=== PATIENT | female | born 1995 | race Caucasian/White ===

== ENCOUNTER → 2022-10-30 | Outpatient (CLI) | payer OTHER, SELFPAY ==
[2022-11-04 07:06] LABS: Chlamydia By Nucleic Acid AMP Negative (Negative); Gonococcus By Nucleic Acid AMP Negative (Negative)
== END | disposition home or self-care (01) ==
PROVIDERS: Referring Provider Registered Nurse; Visit Provider Registered Nurse
DX: Z34.90 Encounter for supervision of normal pregnancy, unspecified, unspecified trimester (principal); Z3A.00 Weeks of gestation of pregnancy not specified
CPT/HCPCS: 87086; 87088; 87491; 87591

== ENCOUNTER → 2022-11-05 | Outpatient (CLI) | payer OTHER, SELFPAY ==
[2022-11-05 17:57] LABS: NATERA MAILED SPECIMEN
== END | disposition home or self-care (01) ==
LOC: LAB 16:52
PROVIDERS: PCP Registered Nurse; Referring Provider Registered Nurse; Visit Provider Registered Nurse
DX: Z34.81 Encounter for supervision of other normal pregnancy, first trimester (principal); Z3A.00 Weeks of gestation of pregnancy not specified

== ENCOUNTER → 2022-11-27 | Outpatient (CLI) | payer OTHER, SELFPAY ==
[2022-11-27 14:59] LABS: Absolute Lymphocyte Count 1.95 X10^3/uL (0.83-4.51); Absolute Neutrophil Count 5.5 X10^3/uL (2.0-7.7); Basophil# 0.04 X10^3/uL; Basophil% 0.5 % (0-1); Eosinophil# 0.06 X10^3/uL; Eosinophils% 0.7 % (0-5); Hematocrit 40.2 % (37-47); Hemoglobin 13.5 g/dL (12.0-15.0); Lymphocyte # 1.95 X10^3/ul (0.83-4.51); Lymphocyte % 23.6 % (19-41); Mean Corp Hgb Conc 33.6 g/dL (32-36); Mean Corpuscular Hgb 29.3 pg (27.0-32.0); Mean Corpuscular Volume 87.2 fL (81-99); Mean Platelet Vol. 9.3 fl (6.2-12.0); Monocyte# 0.71 X10^3/uL; Monocyte% 8.6 % (0-10); NRBC Flagged by Analyzer 0 % (0-5); Neutrophil # 5.45 X10^3/uL (2.7-7.7); Neutrophil % 66.1 % (47-70); Platelet Count 265 K/mm3 (150-450); RBC Distribution Width CV 12.8 % (11.6-14.6); RBC Distribution Width SD 40.1 fl (35.1-43.9); Red Blood Count 4.61 M/mm3 (4.2-5.4); White Blood Count 8.3 K/mm3 (4.4-11.0)
[2022-11-27 17:31] LABS: HIV - WCH Non-Reactive (Nonreactive); Hepatitis B Surface Antigen Non-Reactive (Nonreactive); Hepatitis C Antibody Non-Reactive (Nonreactive); Rubella IgG Reactive (Nonreactive); Syphilis Antibodies Non-reactive
== END | disposition home or self-care (01) ==
LOC: LAB 14:25
PROVIDERS: PCP Registered Nurse; Referring Provider Registered Nurse; Visit Provider Registered Nurse
DX: Z34.90 Encounter for supervision of normal pregnancy, unspecified, unspecified trimester (principal)
CPT/HCPCS: 36415; 85025; 86703; 86762; 86780; 86803; 86850; 86900; 86901; 87340

== ENCOUNTER → 2023-01-23 | Outpatient (CLI) | payer OTHER, SELFPAY ==
--- NOTE | 2023-01-23 12:22 | US_ITS ---
INDICATION: anatomy scan EXAMINATION: Ultrasound US OB Complete W/ Detail single or first gestation TECHNIQUE: Transabdominal pelvic ultrasound was performed. COMPARISON: No relevant prior comparison study available LMP: Unknown. Beta-hCG: Unknown. Provided EGA: None. FINDINGS: INTRAUTERINE GESTATION(s): Single. HEART MOTION is 143 bpm. BIOMETRIC MEASUREMENTS: HEAD CIRCUMFERENCE: 19.7 cm which corresponds to 21 weeks and 6 days. BIPARIETAL DIAMETER: 5.4 cm which corresponds to 22 weeks and 3 days. ABDOMINAL CIRCUMFERENCE: 17.2 cm which corresponds to 22 weeks and 1 day. FEMORAL LENGTH: 3.8 cm which corresponds to 22 weeks. ESTIMATED DUE DATE (DEBORA): 05/30/2023 ESTIMATED WEIGHT: 484 g +/- 73 g, 75% tile. PRESENTATION: Transverse presentation with the head on the maternal left side. AMNIOTIC FLUID INDEX (BRENDA): Within normal limits but not measured, the largest pocket of amniotic fluid measures 6.2 cm. BIOPHYSICAL PROFILE (BPP): Not assessed. PLACENTA: Posterior. There is no placenta previa or abruption. CERVIX: The cervix measures 4.5 cm in length. MATERNAL OVARIES: Not visualized. FREE FLUID: None. ANATOMY: LATERAL VENTRICLES: Visualized. CHOROID PLEXUS: Visualized. MIDLINE FALX: Visualized. CEREBELLUM: Unremarkable CISTERNA MAGNA: The cisterna magna measures 4 mm. UPPER LIP: Not well seen. FOUR CHAMBER HEART VIEW: Unremarkable. STOMACH: Visualized. KIDNEYS: Visualized, no hydronephrosis. URINARY BLADDER: Visualized. UMBILICAL CORD INSERTION into the abdomen: Unremarkable. UMBILICAL CORD vessel number: Normal three vessel cord. SPINE: Grossly unremarkable. No posterior spinal defect observed. UPPER AND LOWER EXTREMITIES: Present. GENDER: Female. US/OB Anatomy w/ Transvaginal IMPRESSION: Single live intrauterine with an estimated gestational age of 21 weeks and 6 days. The DEBORA is 05/30/2023. Electronically Signed: Marcio Nick MD at 11:17 EST ,
== END | disposition home or self-care (01) ==
PROVIDERS: PCP Registered Nurse; Referring Provider Registered Nurse; Visit Provider Registered Nurse
DX: Z34.90 Encounter for supervision of normal pregnancy, unspecified, unspecified trimester (principal)
CPT/HCPCS: 76805; 76817

== ENCOUNTER 2023-02-23 19:33 | Emergency (ER) | payer OTHER, MEDICAID, SELFPAY ==
[2023-02-23 19:34] VITALS: BP 107/63; PULSE 146; RESP 15; TEMP 36.2; O2SAT 97
--- OUTSIDE RECORDS SUMMARY | 2023-02-23 20:07 | XMS RPT_ITS | CCD ---
Author Name Unknown Address [address] [place] [address] Organization [facility] Care Team Providers Care Logging Equipment Mechanic Name Role Phone MIX, MAZIN Sanchez Attending Unavailable MIX, MAZIN Sanchez Primary Care Unavailable MIX, MAZIN N Admitting Unavailable MIX, MAZIN N Admitting Unavailable MIX, MAZIN N Attending Unavailable MIX, MAZIN N Primary Care Unavailable PHYSICIAN, NONE Primary Care Physician Unavailab elan MATHIS MD, DAGMAR Attending Unavailable PHYSICIAN, NONE Primary Care Unavailable DEL CASTRO, DAGMAR Admitting Unavailable RAJ BALLARD, REDDY Chapa Attending Unavailable PHYSICIAN, NONE Primary Care Unavailable DEL CASTRO, DAGMAR Attending Unavailable BRISSA DEFENSE TRAVEL ADMINISTRATOR-COMPUTER ENGINEERING TECHNOLOGIST, ZACKARY Cordero Primary Care Un available DEL CASTRO, DAGMAR Attending Unavailable PHYSICIAN, NONE Primary Care Unavailable DEL CASTRO, DAGMAR Attending Unavailable PHYSICIAN, NONE Primary Care Unavailable FRANCHESKA DEFENSE TRAVEL ADMINISTRATOR-COMPUTER ENGINEERING TECHNOLOGIST, MELBA Attending Unavail able PHYSICIAN, NONE Primary Care Unavailable ANNEMARIE DEFENSE TRAVEL ADMINISTRATOR-CNM, MAINOR Ponce Attending Neelimavai lable PHYSICIAN, NONE Primary Care Unavailable Allergies Allergy Classification Reported Allergen(s) Allergy Type Date of Onset Reaction(s) Facility (4 sources) Sulfonamides (Antibiotic); Translations: [sulfa drugs] Drug allergy sister has allergy, unsure if she actually does or not [facility] Work Phone: Medications Current Medications Medication Drug Class(es) Dates Sig (Normalized) Sig (Original) docusate sodium 100 mg oral tablet (2 sources) Start: 09-18-2021 take 1 dose by mouth twice daily as needed for constipation Dulcolax Stool Softener Dose : 100 mg =, Oral, BID, PRN as needed for constipation, 0 Refill(s) Start Date: 09/18/21 Status: Ordered Fish Oils (3 sources) Start: 07-18-2021 take 1 dose by mouth once daily [place]-3 Fish Oil Dose : 1,000 mg =, Oral, qDay, 0 Refill(s) Start Date: 07/18/21 Status: Ordered Problems Active Problems Problem Classification Problem Date Documented Da te Episodic/Chronic Genitourinary symptoms and ill-defined conditions (2 sources) Urge incontinence; Translations: [Urge incontinence] Onset: 09-18-2021 Chronic Mood disorders (2 sources) Mood disorders; Translations: [Depression, unspecified] Onset: 09-18-2021 Other complications of (3 sources) Uterine size-date discrepancy, first trimester; Translations: [Uterine size-date discrepancy, first trimester] Onset: 12-29-2020 Episodic Residual codes; unclassified (1 source) 11 weeks gestation of ; Translations: [11 weeks gestation of ] Onset: 12-29-2020 Episodic Past or Other Problems Problem Classification Problem Date Documented Date Episodic/Chronic Contraceptive and procreative management (2 sources) Encounter for contraceptive management, unspecified; Translations: [Encounter for contraceptive management, unspecified] Onset: 09-18-2021 Episodic Other and delivery including normal (6 sources) ; Translations: [Encounter for routine follow-up] Onset: 07-01-2021 07-01-2021 Episodic Results Test Name Value Interpretation Reference Range Facil ity Vital Signs Date Time Vital Sign Value Performing Clinician Manny hernandez 10-24-2021 00:26-0400 Body height 175.3 cm REDDY ANTHONY DO [facility] 10-24-2021 00:26-0400 Body temperature 98.06 [degF] REDDY ANTHONY DO [facility] 10-24-2021 00:26-0400 Body weight 95.5 kg REDDY ANTHONY DO [facility] 10-24-2021 00:26-0400 Diastolic blood pressure 87 mm[Hg] REDDY ANTHONY DO [facility] 10-24-2021 00:26-0400 Heart rate 79 /min REDDY ANTHONY DO [facility] 10-24-2021 00:26-0400 Respiratory rate 18 /min REDDY ANTHONY DO [facility] 10-24-2021 00:26-0400 Systolic blood pressure 137 mm[Hg] REDDY ANTHONY DO [facility] 07-01-2021 18:09-0400 Diastolic blood pressure 87 mm[Hg] MAINOR SHARPE DEFENSE TRAVEL ADMINISTRATOR-CNM [facility] 07-01-2021 18:09-0400 Heart rate 102 /min MAINOR SHARPE DEFENSE TRAVEL ADMINISTRATOR-CNM [facility] 07-01-2021 18:09-0400 Mean blood pressure 100 mm[Hg] MAINOR SHARPE DEFENSE TRAVEL ADMINISTRATOR-CNM [facility] 07-01-2021 18:09-0400 Systolic blood pressure 127 mm[Hg] MAINOR SHARPE DEFENSE TRAVEL ADMINISTRATOR-CNM [facility] 07-01-2021 18:02-0400 Body temperature 97.34 [degF] MAINOR SHARPE DEFENSE TRAVEL ADMINISTRATOR-CNM [facility] 07-01-2021 18:02-0400 Diastolic blood pressure 91 mm[Hg] MAINOR SHARPE DEFENSE TRAVEL ADMINISTRATOR-CNM [facility] 07-01-2021 18:02-0400 Heart rate 105 /min MAINOR SHARPE DEFENSE TRAVEL ADMINISTRATOR-CNM [facility] 07-01-2021 18:02-0400 Mean blood pressure 112 mm[Hg] MAINOR SHARPE DEFENSE TRAVEL ADMINISTRATOR-CNM [facility] 07-01-2021 18:02-0400 Respiratory rate 20 /min MAINOR SHARPE DEFENSE TRAVEL ADMINISTRATOR-CNM [facility] 07-01-2021 18:02-0400 Systolic blood pressure 154 mm[Hg] MAINOR SHARPE DEFENSE TRAVEL ADMINISTRATOR-CNM [facility] 07-01-2021 17:51-0400 Body height 175.3 cm MAINOR SHARPE DEFENSE TRAVEL ADMINISTRATOR-CNM [facility] 07-01-2021 17:51-0400 Body weight 102.3 kg MAINOR SHARPE DEFENSE TRAVEL ADMINISTRATOR-CNM [facility] 07-01-2021 17:51-0400 Body weight 33.29 kg/m2 MAINOR SHARPE DEFENSE TRAVEL ADMINISTRATOR-CNM [facility] Encounters Encounter Date Encounter Type Care Provider Facility Start: 10-30-2021 End: 03-20-2022 ambulatory DAGMAR MATHIS MD Facility:A Start: 10-26-2021 End: 10-27-2021 ambulatory MELBA LAY Facility:B Start: 10-26-2021 End: 10-26-2021 Patient encounter procedure MELBA PRITCHARD APRN-COMPUTER ENGINEERING TECHNOLOGIST [facility] Start: 10-24-2021 End: 10-24-2021 Emergency department patient visit REDDY ANTHONY DO Facility:B Start: 10-24-2021 End: 10-24-2021 Emergency department patient visit REDDY ANTHONY DO [facility] Start: 09-18-2021 End: 09-23-2021 ambulatory DAGMAR MATHIS MD Facility:B Start: 07-28-2021 End: 07-30-2021 Evaluation and management of inpatient DAGMAR MATHIS MD Facility:B Start: 07-18-2021 End: 07-19-2021 ambulatory DAGMAR MATHIS MD Facility:B Start: 07-18-2021 End: 07-18-2021 Patient encounter procedure DAGMAR MATHIS MD [facility] Start: 07-01-2021 End: 07-01-2021 ambulatory MAINOR SHARPE DEFENSE TRAVEL ADMINISTRATOR-CNM Facility:B Start: 07-01-2021 End: 07-01-2021 SAME DAY STAY MAINOR SHARPE DEFENSE TRAVEL ADMINISTRATOR-CNM [facility] Start: 03-07-2021 End: 03-07-2021 ambulatory [facility] Start: 12-29-2020 End: 12-29-2020 [facility] Procedures Date Procedure Procedure Detail Performing Clinician Start: 02-24-2015 Jaw region structure (body structure) DAGMAR MATHIS MD Immunizations Immunization Date Immunization Notes Care Provider Fa cility 07-30-2021 tetanus toxoid, redu harris diphtheria toxoid, and acellular pertussis vaccine, adsorbed REDDY ANTHONY DO [facility] Payers Date Payer Category Payer Unknown [id number] 1997 Unknown [id number] [id number] 1997 Unknown [id number] 2.16.84 [id number] 1997 Unknown [id number] 2.16.8 [id number] 1997 Unknown [id number] 2.16.8 [id number] 1997 Unknown [id number] 2.16.8 [id number] 1997 Unknown [id number] 2.16.8 [id number] 1997 Unknown [id number] 2.16.8 [id number] 1997 Unknown [id number] 2.16.8 [id number] 1997 Unknown [id number] 2.16.8 [id number] Medicaid [id number] Unknown [id number] Social History Date Type Detail Facility Tobacco smoking status [facility] Sex Assigned At Female [facility] Start: 07-18-2021 Tobacco smoking status Never s moked tobacco (finding) [facility] Functional Status Date Assessment Result Facility 10-24-2021 Functional Status Ambulating in thomas, Ambulating in room, Awake, Bathroom privileges [facility] 07-01-2021 Functional Status [facility] Mental Status Date Assessment Result Facility 10-24-2021 Mental Status Oriented x [facility] Discharge instructions 10-24-2021 Note Date & Type Note Facility 10-24-2021 Hospital Discharg e instructions Patient Education 10/24/2021 01:00:42 Loperamide tablets or capsules Loperamide tablets or capsules What is this medicine? LOPERAMIDE (mariaa PER a mide) is used to treat diarrhea. How should I use this medicine? Take this medicine by mouth with a glass of water. Follow the directions on the prescription label. Take your doses at regular intervals. Do not take your medicine more often than directed. Talk to your eligibility counselor regarding the use of this medicine in children. Special care may be needed. What side effects may I notice from receiving this medicine? Side effects that you should report to your doctor or health director of home care hospice as soon as possible: allergic reactions like skin rash, itching or hives, swelling of the face, lips, or tongue bloated, swollen feeling in your abdomen blurred vision loss of appetite signs and symptoms of a dangerous change in heartbeat or heart rhythm like chest pain; dizziness; fast or irregular heartbeat palpitations; feeling faint or lightheaded, falls; breathing problems stomach pain Side effects that usually do not require medical attention (report to your doctor or health director of home care hospice if they continue or are bothersome): constipation drowsiness or dizziness dry mouth nausea, vomiting What may interact with this medicine? Do not take this medicine with any of the following medications: alosetron This medicine may also interact with the following medications: cimetidine clarithromycin erythromycin gemfibrozil itraconazole ketoconazole quinidine quinine ranitidine ritonavir saquinavir What if I miss a dose? This does not apply. This medicine is not for regular use. Only take this medicine while you continue to have loose bowel movements. Do not take more medicine than recommended by the packaging label or by your healthcare professional. Where should I keep my medicine? Keep out of the reach of children. Store at room temperature between 15 and 25 degrees C (59 and 77 degrees F). Keep container tightly closed. Throw away any unused medicine after the expiration date. What should I tell my health care provider before I take this medicine? They need to know if you have any of these conditions: a black or bloody stool bacterial food poisoning colitis or mucus in your stool currently taking an antibiotic medication for an infection fever liver disease severe abdominal pain, swelling or bulging an unusual or allergic reaction to loperamide, other medicines, foods, dyes, or preservatives or trying to get breast-feeding What should I watch for while using this medicine? Do not take this medicine for more than 2 days without asking your doctor or health director of home care hospice. Do not use doses higher than those prescribed by your doctor or listed on the label. Check with your doctor or health director of home care hospice right away if you develop a fever, severe abdominal pain, swelling or bulging, or if you have have bloody/black diarrhea or stools. You may get drowsy or dizzy. Do not drive, use machinery, or do anything that needs mental alertness until you know how this medicine affects you. Do not stand or sit up quickly, especially if you are an older patient. This reduces the risk of dizzy or fainting spells. Alcohol can increase possible drowsiness and dizziness. Avoid alcoholic drinks. Your mouth may get dry. Chewing sugarless gum or sucking hard candy, and drinking plenty of water may help. Contact your doctor if the problem does not go away or is severe. Drinking plenty of water can also help prevent dehydration that can occur with diarrhea. Elderly patients may have a more variable response to the effects of this medicine, and are more susceptible to the effects of dehydration. NOTE:This sheet is a summary. It may not cover all possible information. If you have questions about this medicine, talk to your doctor, pharmacist, or health care provider. Copyright 2019 [employer] 10/24/2021 01:00:34 Diarrhea, Unknown Cause Diarrhea with Uncertain Cause (Adult) Diarrhea is when stools are loose and watery. This can be caused by: Viral infections Bacterial infections Food poisoning Parasites Irritable bowel syndrome (IBS) Inflammatory bowel diseases such as ulcerative colitis, Crohn's disease, and celiac disease Food intolerance, such as to lactose, the sugar found in milk and milk products Reaction to medicines like antibiotics, laxatives, cancer drugs, and antacids Along with diarrhea, you may also have: Abdominal pain and cramping Nausea and vomiting Loss of bowel control Fever and chills Bloody stools In some cases, antibiotics may help to treat diarrhea. You may have a stool sample test. This is done to see what is causing your diarrhea, and if antibiotics will help treat it. The results of a stool sample test may take up to 2 days. The healthcare provider may not give you antibiotics until he or she has the stool test results. Diarrhea can cause dehydration. This is the loss of too much water and other fluids from the body. When this occurs, body fluid must be replaced. This can be done with oral rehydration solutions. Oral rehydration solutions are available at drugstores and grocery stores without a prescription. Sports drinks are not the best choice if you are very dehydrated. They have too much sugar and not enough electrolytes. Home care Follow all instructions given by your healthcare provider. Rest at home for the next 24 hours, or until you feel better. Avoid caffeine, tobacco, and alcohol. These can make diarrhea, cramping, and pain worse. If taking medicines: Mkip-hdv-todoyex nausea and diarrhea medicines are generally OK unless you experience fever or blood stool. Check with your doctor first in those circumstances. You may use acetaminophen or NSAID medicines like ibuprofen or naproxen to reduce pain and fever. Don t use these if you have chronic liver or kidney disease, or ever had a stomach ulcer or gastrointestinal bleeding. Don't use NSAID medicines if you are already taking one for another condition (like arthritis) or are on daily aspirin therapy (such as for heart disease or after a stroke). Talk with your healthcare provider first. If antibiotics were prescribed, be sure you take them until they are finished. Don t stop taking them even when you feel better. Antibiotics must be taken as a full course. To prevent the spread of illness: Remember that washing with soap and water and using alcohol-based middle school assistant principal is the best way to prevent the spread of infection. Dry your hands with a single use towel (like a paper towel). Clean the toilet after each use. Wash your hands before eating. Wash your hands before and after preparing food. Keep in mind that people with diarrhea or vomiting should not prepare food for others. Wash your hands after using cutting boards, countertops, and knives that have been in contact with raw foods. Wash and then peel fruits and vegetables. Keep uncooked meats away from cooked and zkcbh-lo-vwp foods. Use a food thermometer when cooking. Cook poultry to at least 165 F (74 C). Cook ground meat (beef, veal, pork, allen) to at least 160 F (71 C). Cook fresh beef, veal, allen, and pork to at least 145 F (63 C). Don t eat raw or undercooked eggs (poached or meagan side up), poultry, meat, or unpasteurized milk and juices. Food and drinks The main goal while treating vomiting or diarrhea is to prevent dehydration. This is done by taking small amounts of liquids often. Keep in mind that liquids are more important than food right now. Drink only small amounts of liquids at a time. Don t force yourself to eat, especially if you are having cramping, vomiting, or diarrhea. Don t eat large amounts at a time, even if you are hungry. If you eat, avoid fatty, greasy, spicy, or fried foods. Don t eat dairy foods or drink milk if you have diarrhea. These can make diarrhea worse. During the first 24 hours you can try: Oral rehydration solutions. Sports drinks may be used if you are not too dehydrated and are otherwise healthy. Soft drinks without caffeine Kristin mckenzie Water (plain or flavored) Decaf tea or coffee Clear broth, consomm , or bouillon Gelatin, popsicles, or frozen fruit juice bars The second 24 hours, if you are feeling better, you can add: Hot cereal, plain toast, bread, rolls, or crackers Plain noodles, rice, mashed potatoes, chicken noodle soup, or rice soup Unsweetened canned fruit (no pineapple) Bananas As you recover: Limit fat intake to less than 15 grams per day. Don t eat margarine, butter, oils, mayonnaise, sauces, gravies, fried foods, peanut butter, meat, poultry, or fish. Limit fiber. Don t eat raw or cooked vegetables, fresh fruits except bananas, or bran cereals. Limit caffeine and chocolate. Limit dairy. Don t use spices or seasonings except salt. Go back to your normal diet over time, as you feel better and your symptoms improve. If the symptoms come back, go back to a simple diet or clear liquids. Follow-up care Follow up with your healthcare provider, or as advised. If a stool sample was taken or cultures were done, call the healthcare provider for the results as instructed. Call 911 Call 911 if you have any of these symptoms: Trouble breathing Confusion Extreme drowsiness or trouble walking Loss of consciousness Rapid heart rate Chest pain Stiff neck Seizure When to seek medical advice Call your healthcare provider right away if any of these occur: Abdominal pain that gets worse Constant lower right abdominal pain Continued vomiting and inability to keep liquids down Diarrhea more than 5 times a day Blood in vomit or stool Dark urine or no urine for 8 hours, dry mouth and tongue, tiredness, weakness, or dizziness Drowsiness New rash You don t get better in 2 to 3 days Fever of 100.4 F (38 C) or higher, or as directed by your healthcare provider [id number] [employer]. [address] [place] [address]. All rights reserved. This information is not intended as a substitute for professional medical care. Always follow your healthcare professional's instructions. Follow Up Care 10/24/2021 00:25:44 With:Follow up with primary care provider Address:Unknown When:2-4 days [facility] Clinical Note 10-24-2021 Note Date & Type Note Facility 10-24-2021 Note Discharge Instructions Thank you for allowing [facility] to assist you with your healthcare needs. The following is important discharge information regarding your hospital visit. Diagnosis from Today's Visit Diarrhea What to Do Next Instructions from Your Care Team No qualifying data available. Post Acute Orders No qualifying data available. You Need to Schedule the Following Appointments Follow Up with Follow up with primary care provider When Within 2-4 days Allergies sulfa drug (sister has allergy, unsure if she actually does or not) Medications Please ask your primary doctor or pharmacist before taking any other medication not listed, including over the counter drugs, herbal medications, vitamins and or supplements as they may interact with your home medications. What How Much When Why Instructions Last Dose Unchanged docusate (Dulcolax Stool Softener) 100 Milligram by mouth Two (2) times a day as needed for as needed for constipation Unchanged multivitamin, ( Multivitamins with Vitamin B Complex, Vitamin C, Minerals and L-Methylfolate oral capsule) 1 cap by mouth Every day Unchanged sertraline (Zoloft 50 mg oral tablet) 1 tab(s) by mouth Once a day exam depression Half tab daily for 6 days, then one daily Unchanged sertraline (Zoloft 50 mg oral tablet) 1 tab(s) by mouth Once a day exam Depression Please take this list to your next doctor s visit. Bring all medications you take, including over the counter medications, herbals and other supplements with you to your doctor s visit. Patients and families are reminded to discard old lists and to update any records with all medication providers or retail pharmacies. Education Materials Loperamide tablets or capsules What is this medicine? LOPERAMIDE (mariaa PER a mide) is used to treat diarrhea. How should I use this medicine? Take this medicine by mouth with a glass of water. Follow the directions on the prescription label. Take your doses at regular intervals. Do not take your medicine more often than directed. Talk to your eligibility counselor regarding the use of this medicine in children. Special care may be needed. What side effects may I notice from receiving this medicine? Side effects that you should report to your doctor or health director of home care hospice as soon as possible: allergic reactions like skin rash, itching or hives, swelling of the face, lips, or tongue bloated, swollen feeling in your abdomen blurred vision loss of appetite signs and symptoms of a dangerous change in heartbeat or heart rhythm like chest pain; dizziness; fast or irregular heartbeat palpitations; feeling faint or lightheaded, falls; breathing problems stomach pain Side effects that usually do not require medical attention (report to your doctor or health director of home care hospice if they continue or are bothersome): constipation drowsiness or dizziness dry mouth nausea, vomiting What may interact with this medicine? Do not take this medicine with any of the following medications: alosetron This medicine may also interact with the following medications: cimetidine clarithromycin erythromycin gemfibrozil itraconazole ketoconazole quinidine quinine ranitidine ritonavir saquinavir What if I miss a dose? This does not apply. This medicine is not for regular use. Only take this medicine while you continue to have loose bowel movements. Do not take more medicine than recommended by the packaging label or by your healthcare professional. Where should I keep my medicine? Keep out of the reach of children. Store at room temperature between 15 and 25 degrees C (59 and 77 degrees F). Keep container tightly closed. Throw away any unused medicine after the expiration date. What should I tell my health care provider before I take this medicine? They need to know if you have any of these conditions: a black or bloody stool bacterial food poisoning colitis or mucus in your stool currently taking an antibiotic medication for an infection fever liver disease severe abdominal pain, swelling or bulging an unusual or allergic reaction to loperamide, other medicines, foods, dyes, or preservatives or trying to get breast-feeding What should I watch for while using this medicine? Do not take this medicine for more than 2 days without asking your doctor or health director of home care hospice. Do not use doses higher than those prescribed by your doctor or listed on the label. Check with your doctor or health director of home care hospice right away if you develop a fever, severe abdominal pain, swelling or bulging, or if you have have bloody/black diarrhea or stools. You may get drowsy or dizzy. Do not drive, use machinery, or do anything that needs mental alertness until you know how this medicine affects you. Do not stand or sit up quickly, especially if you are an older patient. This reduces the risk of dizzy or fainting spells. Alcohol can increase possible drowsiness and dizziness. Avoid alcoholic drinks. Your mouth may get dry. Chewing sugarless gum or sucking hard candy, and drinking plenty of water may help. Contact your doctor if the problem does not go away or is severe. Drinking plenty of water can also help prevent dehydration that can occur with diarrhea. Elderly patients may have a more variable response to the effects of this medicine, and are more susceptible to the effects of dehydration. NOTE:This sheet is a summary. It may not cover all possible information. If you have questions about this medicine, talk to your doctor, pharmacist, or health care provider. Copyright 2019 [employer] Diarrhea with Uncertain Cause (Adult) Diarrhea is when stools are loose and watery. This can be caused by: Viral infections Bacterial infections Food poisoning Parasites Irritable bowel syndrome (IBS) Inflammatory bowel diseases such as ulcerative colitis, Crohn's disease, and celiac disease Food intolerance, such as to lactose, the sugar found in milk and milk products Reaction to medicines like antibiotics, laxatives, cancer drugs, and antacids Along with diarrhea, you may also have: Abdominal pain and cramping Nausea and vomiting Loss of bowel control Fever and chills Bloody stools In some cases, antibiotics may help to treat diarrhea. You may have a stool sample test. This is done to see what is causing your diarrhea, and if antibiotics will help treat it. The results of a stool sample test may take up to 2 days. The healthcare provider may not give you antibiotics until he or she has the stool test results. Diarrhea can cause dehydration. This is the loss of too much water and other fluids from the body. When this occurs, body fluid must be replaced. This can be done with oral rehydration solutions. Oral rehydration solutions are available at drugstores and grocery stores without a prescription. Sports drinks are not the best choice if you are very dehydrated. They have too much sugar and not enough electrolytes. Home care Follow all instructions given by your healthcare provider. Rest at home for the next 24 hours, or until you feel better. Avoid caffeine, tobacco, and alcohol. These can make diarrhea, cramping, and pain worse. If taking medicines: Kkcp-mqc-ggkjjgj nausea and diarrhea medicines are generally OK unless you experience fever or blood stool. Check with your doctor first in those circumstances. You may use acetaminophen or NSAID medicines like ibuprofen or naproxen to reduce pain and fever. Don t use these if you have chronic liver or kidney disease, or ever had a stomach ulcer or gastrointestinal bleeding. Don't use NSAID medicines if you are already taking one for another condition (like arthritis) or are on daily aspirin therapy (such as for heart disease or after a stroke). Talk with your healthcare provider first. If antibiotics were prescribed, be sure you take them until they are finished. Don t stop taking them even when you feel better. Antibiotics must be taken as a full course. To prevent the spread of illness: Remember that washing with soap and water and using alcohol-based middle school assistant principal is the best way to prevent the spread of infection. Dry your hands with a single use towel (like a paper towel). Clean the toilet after each use. Wash your hands before eating. Wash your hands before and after preparing food. Keep in mind that people with diarrhea or vomiting should not prepare food for others. Wash your hands after using cutting boards, countertops, and knives that have been in contact with raw foods. Wash and then peel fruits and vegetables. Keep uncooked meats away from cooked and cjqyy-er-vwf foods. Use a food thermometer when cooking. Cook poultry to at least 165 F (74 C). Cook ground meat (beef, veal, pork, allen) to at least 160 F (71 C). Cook fresh beef, veal, allen, and pork to at least 145 F (63 C). Don t eat raw or undercooked eggs (poached or meagan side up), poultry, meat, or unpasteurized milk and juices. Food and drinks The main goal while treating vomiting or diarrhea is to prevent dehydration. This is done by taking small amounts of liquids often. Keep in mind that liquids are more important than food right now. Drink only small amounts of liquids at a time. Don t force yourself to eat, especially if you are having cramping, vomiting, or diarrhea. Don t eat large amounts at a time, even if you are hungry. If you eat, avoid fatty, greasy, spicy, or fried foods. Don t eat dairy foods or drink milk if you have diarrhea. These can make diarrhea worse. During the first 24 hours you can try: Oral rehydration solutions. Sports drinks may be used if you are not too dehydrated and are otherwise healthy. Soft drinks without caffeine Kristin mckenzie Water (plain or flavored) Decaf tea or coffee Clear broth, consomm , or bouillon Gelatin, popsicles, or frozen fruit juice bars The second 24 hours, if you are feeling better, you can add: Hot cereal, plain toast, bread, rolls, or crackers Plain noodles, rice, mashed potatoes, chicken noodle soup, or rice soup Unsweetened canned fruit (no pineapple) Bananas As you recover: Limit fat intake to less than 15 grams per day. Don t eat margarine, butter, oils, mayonnaise, sauces, gravies, fried foods, peanut butter, meat, poultry, or fish. Limit fiber. Don t eat raw or cooked vegetables, fresh fruits except bananas, or bran cereals. Limit caffeine and chocolate. Limit dairy. Don t use spices or seasonings except salt. Go back to your normal diet over time, as you feel better and your symptoms improve. If the symptoms come back, go back to a simple diet or clear liquids. Follow-up care Follow up with your healthcare provider, or as advised. If a stool sample was taken or cultures were done, call the healthcare provider for the results as instructed. Call 911 Call 911 if you have any of these symptoms: Trouble breathing Confusion Extreme drowsiness or trouble walking Loss of consciousness Rapid heart rate Chest pain Stiff neck Seizure When to seek medical advice Call your healthcare provider right away if any of these occur: Abdominal pain that gets worse Constant lower right abdominal pain Continued vomiting and inability to keep liquids down Diarrhea more than 5 times a day Blood in vomit or stool Dark urine or no urine for 8 hours, dry mouth and tongue, tiredness, weakness, or dizziness Drowsiness New rash You don t get better in 2 to 3 days Fever of 100.4 F (38 C) or higher, or as directed by your healthcare provider 1956-1927 [employer]. [address] [place] [address], [place] [address]. All rights reserved. This information is not intended as a substitute for professional medical care. Always follow your healthcare professional's instructions. Additional Information VACCINATE! IT SAVES LIVES! Members of the community who have not yet received the COVID-19 vaccine and would like to receive it can visit one of [facility] vaccine clinics. There are many vaccine clinic locations within the [facility]. For locations and available times, please visit [email or web address]. It is important to note that some COVID mobile vaccine clinics are held outdoors and may be canceled in rainy or stormy conditions. To learn more about pediatric vaccinations (ages 5-11), we invite you to visit the [facility] webpage. [email or web address] -[email or web address] To learn more about the COVID-19 vaccine, we invite you to visit the [facility] website for a list of frequently asked questions. [email or web address] [facility] Patient Portal Access Instructions: Stay connected with your healthcare team and access your personal medical information anytime with the [facility] Patient Portal. If you would like a full copy of your medical records please contact the [facility] Medical Records Department Friday through Friday between 8a.m. and 4:30p.m. Please follow the directions below to access the portal: 1.Access the email account you provided upon registration to the hospital.2.Look for an invitation email from [facility].3.Open the email and access the invitation link: Accept Invitation to [facility]4.Fill in the required mitchell to create your account. Sign into [email or web address] with your username and password that you created in the above steps to stay up to date. You can then view a summary of results, a summary of your visits, and the ability to download your summaries to your computer or send the information securely to a physician. Remember that your healthcare information is confidential, so carefully consider who you will allow to register on the [facility] Patient Portal for access to your information. You can also access the [facility] Patient Portal on the [employer]. Simply click on Health Records under Health Data and then click on the [employer] logo. HOW TO SAFELY DISPOSE OF PRESCRIPTION MEDICATIONS Please use one of the following methods to safely dispose of your unused medications. 1.Use a drug disposal kit: the drug disposal pouch allows you to safely discard your old and unused drugs. Ask your nurse to give you one when you are discharged.2.Visit a local take-back location: Many local pharmacies and police departments have programs that collect old and unwanted prescription drugs. Call your local pharmacy or go to http://[employer]UGE/2W3Bo4d to find one close to you.3.Make use of household items: Use cat litter or old coffee grounds to dispose medications if other options are not available. Mix your drugs with these household products, seal them in an airtight container and throw it into the garbage. Call [facility]: [phone] to be sure your drugs can be disposed of in this way. Some medicines may require a different approach.4.Never flush your medications down the toilet. IF YOU HAVE BEEN PRESCRIBED AN OPIOIDS FOR PAIN If you have been prescribed an opioid (such as hydrocodone, oxycodone or morphine), it is critical to understand the possible side effects and risks of opioid pain medications. Even when taken as directed, opioids can have several side effects including: Tolerance, meaning you might need to take more of a medication for the same pain relief. Nausea, vomiting and/or constipation. Sleepiness, dizziness, dry mouth, confusion, depression or itching. Physical dependence, meaning you have withdrawal symptoms when a medication is stopped ? this can develop within a few days. KNOW YOUR RESPONSIBILITIES It is important to know exactly how much and how often to take the opioid pain medications you are prescribed. Never take opioids in higher amounts or more often than prescribed. Do not combine opioids with alcohol or other drugs that cause drowsiness, such as benzodiazepines, also known as benzos, including diazepam and alprazolam, muscle relaxants or sleep aids. Never sell or share prescription opioids. This is illegal. Store opioids in a secure place and out of reach of others (including children, family, friends and visitors). The last page(s) of this document has been signed and retained as a CHART COPY Signatures Patient Education Materials Loperamide tablets or capsules Diarrhea, Unknown Cause Medication Leaflets My discharge plan and instructions have been reviewed and explained to me and I,SETH GARCIA understand my current condition and have read and understand these discharge instructions. I have received a written copy of the plan/instructions. If I have questions, I am aware that I should contact my doctor. Patient/Sample Wrapper Signature: _ Date/Time: Relationship to Patient: Witness Name/Signature: Date/Time: [facility] Discharge instructions 07-01-2021 Note Date & Type Note Facility 07-01-2021 Hospital Discharg e instructions Patient Education 07/01/2021 18:28:08 [facility] Outpatient Instructions ([facility]) [facility] OUT[facility]IENT HOME-GOING INSTRUCTIONS _X_ You are to follow up with your physician in ___ days/weeks. ACTIVITY ___ Bedrest ___Activity as tolerated ___ No work/school for ___ days. ___Other PRESCRIPTION GIVEN ___Yes NAUSEA/VOMITING ___ Take small, frequent amounts of clear liquids. Avoid fruit juices and milk. ___ Increase fluid intake to a minimum of 8 ounces of fluid every hour while awake. ___ Soft diet. Rice, crackers, bananas, Jell-O, cooked carrots, applesauce. ___ [place] diet. Avoid caffeine, chocolate, alcohol, spiced/greasy foods. URINARY TRACT INFECTION ___ Drink 8-12 glasses of water every day. ___ Urinate frequently; do not limit fluids to reduce frequency of urination. ___ Call your physician if burning and frequency with urination returns after taking all your medication. ___ Call your physician if you have a temperature of 100.4 degrees Fahrenheit or higher. ___ Wipe from front to back. SIGNS OF PRE-ECLAMPSIA ___ Severe heartburn. ___ Persistent headache not relieved by Tylenol. ___ Increased in swelling of face, hands and feet. ___ Blurred vision, double vision, or spots in the eyes. ___ Persistent vomiting. ___ *Convulsions or seizures. LABOR _X__ Restrict activity. __X_ Drink 8-12 glasses of water every day. __X_ Urinate frequently _X__ Pelvic rest. No sexual intercourse/ Call your physician if you experience: _X__ Increase in vaginal discharge, leaking fluid, or vaginal bleeding. _XX__ More than 4, 5, or 6 contractions in one hour. __X_ Burning and frequency with urination. DECREASED MOVEMENT __X_ Lie down on your left side, drink some fluids and relax. Count the movements. You need to have 10 movements in 2 hours. _X__ If you do not feel the 10 movements, call your physician. OTHER ___ After an exam you may experience some spotting or discharge. As long as it is not bright red and heavy like a period or continues to leak as if your water broke, it is to be expected. ___ LABOR Call your physician if you experience: __X_ Painful uterine contractions every 3-5 minutes for1 hours. __X_A gush or continuous trickle of watery discharge. COME TO THE HOSPITAL AND CALL PHYSICIAN IF: _X__ Your abdomen feels continually firm. __X_ *Bleeding is bright red and enough to saturate a pad in one hour or less. *Call 911 or go to the nearest Emergency Room for assistance. Form D: 02/01 Follow Up Care 07/01/2021 17:38:15 With:Follow up with primary care provider Address: When: Unknown Comments:Follow up with provider Mazin leroy this week [facility] Evaluation + Plan note Note Date & Type Note Facility Evaluation + Plan note No data available for this section [facility] Evaluation + Plan note Note Date & Type Note Facility Evaluation + Plan note Future Appointments Appointment Date:07/25/2021 09:45:00 AM Scheduled Provider:DAGMAR MATHIS MD Location:[facility] Appointment Type:[facility] OV OB Routine Follow Up [facility] Evaluation + Plan note Note Date & Type Note Facility Evaluation + Plan note Future Appointments Appointment Date:10/30/2021 01:00:00 PM [place] [id number] Location:[facility] Appointment Type:PT Outpatient Evaluation [facility] Evaluation + Plan note Note Date & Type Note Facility Evaluation + Plan note Future Appointments Appointment Date:10/30/2021 01:00:00 PM Scheduled Provider:[place] [id number] Location:[facility] Appointment Type:PT Outpatient Evaluation Appointment Date:12/10/2021 01:00:00 PM Scheduled Provider:ZACKARY BRUMFIELD Location:[facility] Appointment Type:PC DIRECTOR OF INSTITUTIONAL GIVING Diagnostic Tests PendingRapid Plasma Reagin Test 10/26/21 [facility] Hospital Discharge instructions Note Date & Type Note Facility Hospital Discharge instructions No data available for this section [facility] Progress note Note Date & Type Note Facility Progress note No data available for this section [facility] Summary note Note Date & Type Note Facility Summary note PORTER Brumfield: PERFORM Event Display: Patient Summary Documents Authored Date: [id number] [facility] Summary Purpose Family History No Family History Records FoundNo Family History Records Found Advance Directives No Advanced Directives Records FoundNo Advanced Directives Records Found Additional Source Comments INFORMATION SOURCE (unrecogn ized section and content) DATE CREATED AUTHOR AUTHOR'S ORGANIZ ATION 05/10/2022 [facility] ([place]) Care Team (unrecognized sect ion and content) Care Team Personnel Name: PHYSICIAN, NONE Position: Physician Member Role: Primary Care Physician Name: REDDY ANTHONY DO Position: ED Physician Member Role: ED Physician Address: Address: [address] Care Team Related Persons Name: ALEX DAVE Address: Home [address] [place], [place] [id number] Address: Temporary [address] [place], [place] [id number] Name: CECELIA DAVE Care Team Personnel Name: PHYSICIAN, NONE Position: Physician Member Role: Primary Care Physician Care Team Related Persons Name: ALEX DAVE Address: Home [address] [place], [place] [id number] Address: Temporary [address] [place], [place] [id number] Name: CECELIA DAVE FOR RECORDS PERTAINING TO PATIENTS WHO ARE OR HAVE BEEN ENROLLED IN A CHEMICAL DEPENDENCY/SUBSTANCEABUSE PROGRAM, SOME INFORMATION MAY BE OMITTED. This clinical summary was aggregated from multiple sources. Caution should be exercised in using it in the provision of clinical care. This summary normalizes information from multiple sources, and as a consequence, information in this document may materially change the coding, format and clinical context of patient data. In addition, data may be omitted in some cases. CLINICAL DECISIONS SHOULD BE BASED ON THE PRIMARY CLINICAL RECORDS. [facility]. provides no warranty or guarantee of the accuracy or completeness of information in this document.
[2023-02-23 21:51] LABS: Absolute Lymphocyte Count 0.56 X10^3/uL (0.83-4.51); Absolute Neutrophil Count 6.1 X10^3/uL (2.0-7.7); Basophil# 0.06 X10^3/uL; Basophil% 0.8 % (0-1); Eosinophil# 0.02 X10^3/uL; Eosinophils% 0.3 % (0-5); Hematocrit 42.2 % (37-47); Hemoglobin 14.2 g/dL (12.0-15.0); Lymphocyte # 0.56 X10^3/ul (0.83-4.51); Lymphocyte % 7.6 % (19-41); Mean Corp Hgb Conc 33.6 g/dL (32-36); Mean Corpuscular Hgb 29.7 pg (27.0-32.0); Mean Corpuscular Volume 88.3 fL (81-99); Mean Platelet Vol. 9.2 fl (6.2-12.0); Monocyte# 0.42 X10^3/uL; Monocyte% 5.7 % (0-10); NRBC Flagged by Analyzer 0 % (0-5); Neutrophil # 6.12 X10^3/uL (2.7-7.7); POSITIVE DIFFERENTIAL YES; Platelet Count 255 K/mm3 (150-450); RBC Distribution Width CV 12.6 % (11.6-14.6); RBC Distribution Width SD 40.1 fl (35.1-43.9); Red Blood Count 4.78 M/mm3 (4.2-5.4); White Blood Count 7.4 K/mm3 (4.4-11.0)
[2023-02-23] MEDS: Ondansetron 4 MG/2 ML Vial IV (21:52)
[2023-02-23] MEDS: 0.9% Normal Saline (1000mL) 1,000 ML 999 ML IV ×2 (21:52→23:14)
[2023-02-23 21:53] VITALS: BP 118/64; PULSE 105; RESP 16; O2SAT 95
[2023-02-23 21:55] LABS: Differential Indicated SCAN CRITERIA MET
[2023-02-23 22:06] LABS: Anion Gap 6 (5-15); BUN 9 mg/dL (7-18); BUN/Creat Ratio 15.7 RATIO (10-20); Calcium,Total 8.2 mg/dL (8.5-10.1); Chloride 111 mmol/L (98-107); Creatinine, Serum 0.58 mg/dL (0.55-1.02); EST Glomerular Filtration Rate 135 mL/min (>60); Est Glom Filt Rate - Afr Amer 164 mL/min (>60); Estimated Creatinine Clearance 154.96 ml/min; Glucose 134 mg/dL (74-106); Potassium 3.1 mmol/L (3.5-5.1); Sodium Level 140 mmol/L (136-145)
[2023-02-23 22:53] LABS: Differential Comment SCANNED
[2023-02-23 23:09] LABS: Mucous, Urine 0 SEEN /hpf (<or=2+); Red Blood Cells-Urine 0 SEEN /hpf (0-5)
[2023-02-23 23:11] LABS: Color, Urine Yellow (Yellow); Glucose, Dipstick 50 mg/dl (Normal); Ketone-Dipstick 50 mg/dl (Negative); Leukocyte Esterase-Dipstick Negative /ul (Negative); Nitrite-Dipstick Negative (Negative); Occult Blood-Urine 10 /ul (Negative); Protein-Dipstick 30 mg/dl (Negative); Urine Bilirubin Dipstick Negative (Negative); Urine Clarity Clear (Clear); Urine Urobilinogen Normal (Normal)
[2023-02-23] MEDS: Potassium Chloride Oral Tablet 20 MEQ 40 MEQ PO (23:17)
[2023-02-23 23:57] LABS: Bacteria RARE /hpf (None Seen); Squamous Epithelial Cells - UA 0-5 SEEN /hpf (5-10); White Blood Cells 0-5 SEEN /hpf (0-5)
--- NOTE | 2023-02-24 00:05 | EX.ED.DYSGE1 ---
HPI History of Present Illness Chief Complaint: Numb/Ting Informant: patient Narrative Narrative: 27-year-old female presenting to the emergency room chief complaint of vomiting diarrhea. Patient states that her toddler has been sick with same. She is had continued vomiting diarrhea throughout the day. She notes paresthesias of the fingers right face and feet. She notes that she is 26 weeks . She spoke with on-call obstetrics who sent her to the hospital. She attempted small-volume oral hydration without success. She denies any fever. Recent COVID diagnosis before [employer]. PFSH PFS Home Medications vits no.126-ferrous fum 28 mg iron-folic acid 800 mcg tablet (Classic ) 1 tab PO DAILY 10/30/22 [History Last Taken Unknown] aspirin 81 mg tablet,delayed release (Adult Low Dose Aspirin) 81 mg PO DAILY 02/23/23 [History Last Taken Unknown] Allergy/AdvReac Type Severity Reaction Status Date / Time Sulfa (Sulfonamide Allergy Mild Rash Verified 02/23/23 21:59 Antibiotics) Family History Grandmother Breast cancer Aunt Breast cancer Uncle Cancer lung cancer Sister Ulcerative colitis Father Hypertension Grandfather , of heart attack Hypertension Heart disease Grandfather Heart disease Hypertension Aunt Breast cancer Grandmother Breast cancer Sister Ulcerative colitis Pituitary tumor Mother Hypoactive thyroid Surgical History History of mandibular surgery [place] teeth removed Social History adopted: No household members: spouse and children housing: house number of children: 1 current occupational status: employed 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 [employer] current occupational exposures/hazards: No pets and animals: No leisure activities: reading history of recent travel: Yes out of state: Yes out of country: Yes sexually active: Yes Smoking Status: Never smoker second hand exposure: No alcohol intake: never substance use type: does not use well-balanced diet: daily or most days caffeine: Yes eating out: 1-3 times/week what type of physical activity do you participate in: none and walking yang/shinto: Hoahaoism seatbelt use: always do you feel safe at home: Yes additional social history: - Georgi PAZ ED Constitutional Constitutional ED: Denies chills, fever(s) or weight loss Eyes Eyes: Denies change in vision or diplopia ENT ENT ED: Denies ear pain, rhinorrhea or sore throat Cardiovascular Cardiovascular: Denies chest pain, orthopnea, palpitations or racing heartbeat Respiratory/Chest Respiratory/Chest: Denies cough, dyspnea or orthopnea Gastrointestinal Gastrointestinal: Reports diarrhea, nausea and vomiting; Denies abdominal pain Genitourinary Genitourinary ED: Denies dysuria, hematuria or urinary frequency Musculoskeletal Musculoskeletal: Denies arthralgias or myalgias Integumentary Denies abscess or rash Neurologic Neurologic: Denies headache(s) or weakness Psychiatric Psychiatric: Denies anxiety, depression, suicidal ideation or suicidal thoughts Endocrine Endocrinology: Denies polydipsia, polyphagia or polyuria Allergic/Immunologic Allergic/Immunologic ED: Denies mouth swelling, tongue swelling or urticaria EXAM Physical Exam Const Vital Signs: 02/23/23 19:34 02/23/23 21:53 Temperature 97.2 F L Temperature Source Temporal Pulse Rate 146 H 105 H Respiratory Rate 15 16 Blood Pressure 107/63 118/64 Blood Pressure Mean 77 82 Pulse Ox 97 95 Oxygen Delivery Method Room Air Room Air Positive well nourished and well developed General Appearance ED: well developed HEENT Reports normocephalic, head/scalp atraumatic and moist mucous membranes Eyes PERRL and EOMs intact bilaterally Neck no lymphadenopathy, supple and no JVD Resp normal respiratory effort and clear to auscultation bilaterally Cardio regular rate, regular rhythm and no murmurs Rate: tachycardic GI normal to inspection, nondistended, normoactive bowel sounds and non-tender Palpation: soft Back/Spine no CVA tenderness and normal ROM Extremity normal to inspection General Extremety ED: Negative for edema General Extremity: Negative for edema Neuro oriented x3 and CN's II-XII intact bilaterally Sensorium / Orientation: alert Motor Exam: strength 5/5 throughout Psych mental status grossly normal Mood & Affect: Negative for depressed or tearful Skin no rashes or lesions noted and no wounds MDM MDM MDM Narrative Medical decision making narrative: Patient received IV fluids in the form of 2 L normal saline as well as Zofran. Potassium returns at 3.1 she received 40 mill equivalents p.o. Glucose 134. Urinalysis no overt infection. Was some ketones. White count 7.4 hemoglobin 14.2. heart rate of 160. Patient feels better after treatment. She will be discharged home with continued supportive care instructions for Deborasaira. I think the potassium is acute loss with shift and not so much whole body depletion. This should bounce back without significant work History & Record Review Discussion w/independent historian: Patient and Significant other Lab Data Attestation: I reviewed the patient's lab results. Labs: Laboratory Results - last 24 hr 02/23/23 02/23/23 21:45 22:58 WBC 7.4 RBC 4.78 Hgb 14.2 Hct 42.2 MCV 88.3 MCH 29.7 MCHC 33.6 RDW Std Deviation 40.1 RDW Coeff of Sarah 12.6 Plt Count 255 MPV 9.2 Immature Gran % (Auto) 2.600 H Neut % (Auto) 83.0 H Lymph % (Auto) 7.6 L [place] % (Auto) 5.7 Eos % (Auto) 0.3 Baso % (Auto) 0.8 Absolute Neuts (auto) 6.1 Absolute Lymphs (auto) 0.56 L Nucleated RBC % 0 Differential Comment SCANNED Sodium 140 Potassium 3.1 L Chloride 111 H Carbon Dioxide 23.0 Anion Gap 6 BUN 9 Creatinine 0.58 Estim Creat Clear Calc 154.96 Est GFR (MDRD) Af Amer 164 Est GFR (MDRD) Non-Af 135 BUN/Creatinine Ratio 15.7 Glucose 134 H Calcium 8.2 L Urine Color Yellow Urine Clarity Clear Urine pH 6.0 Ur Specific [place] 1.030 Urine Protein 30 H Urine Glucose (UA) 50 H Urine Ketones 50 H Urine Occult Blood 10 H Urine Nitrite Negative Urine Bilirubin Negative Urine Urobilinogen Normal Ur Leukocyte Esterase Negative Urine RBC 0 SEEN Urine WBC 0-5 SEEN Ur Squamous Epith Cells 0-5 SEEN Urine Bacteria RARE Urine Mucus 0 SEEN Discharge Plan Triage Chief Complaint: Numb/Ting Other Complaint: Nausea/Vomiting/Diarrhea ED Provider: Victorino Bassett Dx/Rx/DC Orders Prescriptions: No Action Classic 28 mg iron- 800 mcg tablet 1 tab PO DAILY aspirin [Adult Low Dose Aspirin] 81 mg tablet,delayed release (DR/EC) 81 mg PO DAILY Primary Care Provider: Cathy Khalil NP Referrals: Simran,Cathy ARRANGER ASSEMBLER, ARRANGER ASSEMBLER-C [Primary Care Provider] -
[2023-02-24 01:14] VITALS: BP 98/54; PULSE 109; RESP 16; O2SAT 96
== END 2023-02-24 01:18 | disposition home or self-care (01) ==
PROVIDERS: Emergency Provider Emergency Medicine; PCP Registered Nurse; Visit Provider Emergency Medicine
DX: O99.891 Other specified diseases and conditions complicating pregnancy (principal); R11.2 Nausea with vomiting, unspecified; R19.7 Diarrhea, unspecified; Z3A.26 26 weeks gestation of pregnancy; Z79.82 Long term (current) use of aspirin; Z86.16 Personal history of COVID-19
CPT/HCPCS: 80048; 81001; 85025; 96361; 96374; 99285; J7030; A4216; J2405

== ENCOUNTER → 2023-03-04 | Outpatient (CLI) | payer OTHER, SELFPAY ==
[2023-03-04 12:12] LABS: Absolute Neutrophil Count 6.8 X10^3/uL (2.0-7.7); Basophil# 0.05 X10^3/uL; Basophil% 0.5 % (0-1); Eosinophil# 0.05 X10^3/uL; Eosinophils% 0.5 % (0-5); Hematocrit 37.6 % (37-47); Hemoglobin 12.6 g/dL (12.0-15.0); Lymphocyte % 20.6 % (19-41); Mean Corp Hgb Conc 33.5 g/dL (32-36); Mean Corpuscular Hgb 29.5 pg (27.0-32.0); Mean Corpuscular Volume 88.1 fL (81-99); Mean Platelet Vol. 9.3 fl (6.2-12.0); Monocyte# 0.61 X10^3/uL; Monocyte% 6.3 % (0-10); NRBC Flagged by Analyzer 0 % (0-5); Neutrophil % 70.2 % (47-70); Platelet Count 287 K/mm3 (150-450); RBC Distribution Width CV 12.5 % (11.6-14.6); Red Blood Count 4.27 M/mm3 (4.2-5.4); White Blood Count 9.7 K/mm3 (4.4-11.0)
[2023-03-04 12:46] LABS: Glucose Challenge Gest 1H 50g 117 mg/dL (70-140)
[2023-03-04 14:14] LABS: HIV - WCH Non-Reactive (Nonreactive); Syphilis Antibodies Non-reactive
== END | disposition home or self-care (01) ==
PROVIDERS: PCP Registered Nurse; Referring Provider Registered Nurse; Visit Provider Registered Nurse
DX: Z34.90 Encounter for supervision of normal pregnancy, unspecified, unspecified trimester (principal)
CPT/HCPCS: 36415; 82950; 85025; 86703; 86780

== ENCOUNTER → 2023-05-07 | Outpatient (CLI) | payer MEDICAID, SELFPAY ==
[2023-05-07 17:18] LABS: Group B Strep DNA By PCR Negative (Negative); Internal Control PASS; Probe Check PASS; Specimen Processing Control PASS
== END | disposition home or self-care (01) ==
PROVIDERS: PCP Registered Nurse; Referring Provider Registered Nurse; Visit Provider Registered Nurse
DX: Z34.90 Encounter for supervision of normal pregnancy, unspecified, unspecified trimester (principal)
CPT/HCPCS: 87081; 87653

== ENCOUNTER 2023-05-26 01:26 | Emergency (ER) | payer OTHER, MEDICAID, SELFPAY ==
[2023-05-26 01:28] VITALS: BP 130/90; PULSE 105; RESP 18; TEMP 36.3; O2SAT 98; BMI 33.4
--- NOTE | 2023-05-26 02:30 | EDS_ITS ---
HPI History of Present Illness Chief Complaint: Edema Informant: patient Narrative Narrative: Patient is a 28-year-old female who is 39 weeks and otherwise with no significant past medical history. She states that roughly a week ago he was told that she has a upper respiratory infection/cold. She states over the last few days she has been developing pain and swelling of the left upper cheek/jaw. She states that there was no trauma and she denies any difficulty breathing or swallowing. She states that the pain has now become a constant throb and secondary to worsening pain presents for evaluation [facility] Home Medications vits no.126-ferrous fum 28 mg iron-folic acid 800 mcg tablet (Classic ) 1 tab PO DAILY 10/30/22 [History Last Taken Unknown] aspirin 81 mg tablet,delayed release (Adult Low Dose Aspirin) 81 mg PO DAILY 02/23/23 [History Last Taken Unknown] ondansetron 4 mg disintegrating tablet 4 mg PO Q6H PRN PRN Nausea #20 tabs 02/24/23 [Rx Last Taken Unknown] clindamycin HCl 300 mg capsule 300 mg PO 4X/DAY 10 days #40 caps 05/26/23 [Rx Last Taken Unknown] Allergy/AdvReac Type Severity Reaction Status Date / Time Sulfa (Sulfonamide Allergy Mild Rash Verified 05/26/23 01:28 Antibiotics) Family History Grandmother Breast cancer Aunt Breast cancer Uncle Cancer lung cancer Sister Ulcerative colitis Father Hypertension Grandfather , of heart attack Hypertension Heart disease Grandfather Heart disease Hypertension Aunt Breast cancer Grandmother Breast cancer Sister Ulcerative colitis Pituitary tumor Mother Hypoactive thyroid Surgical History History of mandibular surgery [place] teeth removed Social History adopted: No household members: spouse and children housing: house number of children: 1 current occupational status: employed 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 [employer] current occupational exposures/hazards: No pets and animals: No leisure activities: reading history of recent travel: Yes out of state: Yes out of country: Yes sexually active: Yes Smoking Status: Never smoker second hand exposure: No alcohol intake: never substance use type: does not use well-balanced diet: daily or most days caffeine: Yes eating out: 1-3 times/week what type of physical activity do you participate in: none and walking yang/muslim: Religious seatbelt use: always do you feel safe at home: Yes additional social history: - Georgi PAZ ROS ED Constitutional Constitutional ED: Denies chills or fever(s) Eyes Eyes: Denies change in vision ENT ENT ED: Reports other Details: Positive jaw pain and facial swelling ; Denies rhinorrhea or sore throat Cardiovascular Cardiovascular: Denies chest pain Respiratory/Chest Respiratory/Chest: Denies cough or dyspnea Gastrointestinal Gastrointestinal: Denies abdominal pain, diarrhea, nausea or vomiting Genitourinary Genitourinary ED: Reports urinary frequency and other Details: Negative vaginal bleeding or discharge ; Denies dysuria Musculoskeletal Musculoskeletal: Denies myalgias or neck pain Integumentary Reports other Details: Positive soft tissues swelling to the left cheek ; Denies rash Neurologic Neurologic: Denies headache(s) Hematologic/Lymphatic Hematologic/Lymphatic: Denies easy bleeding or easy bruising EXAM Physical Exam Const Vital Signs: 05/26/23 01:28 05/26/23 01:27 05/26/23 02:42 Temperature 97.3 F L 97.3 F L Temperature Source Temporal Pulse Rate 105 H 91 Respiratory Rate 18 18 Respiratory Effort Normal Non-Labored Respiratory Pattern Normal Blood Pressure 130/90 H 127/85 H Blood Pressure Mean 103 99 Pulse Ox 98 98 Oxygen Delivery Method Room Air Positive well nourished and well developed General Appearance ED: well developed HEENT HEENT Narrative: Patient has soft tissue swelling to the left cheek over top the zygomatic arch and extends slightly towards the bridge of the nose. There is faint erythema and warmth here without obvious induration or fluctuance. There is erythema of the left upper jaw without obvious abscess formation. No signs of ANUG No oral lesions or airway edema or compromise No signs of secondary infection to the posterior pharynx No brawny edema in the submental space to suggest Kana's angina Eyes PERRL and EOMs intact bilaterally Neck supple Neck Narrative: Positive anterior cervical lymphadenopathy Resp normal respiratory effort and clear to auscultation bilaterally Cardio regular rate and regular rhythm Extremity normal to inspection Neuro oriented x3, CN's II-XII intact bilaterally and no sensory deficits noted Sensorium / Orientation: alert Motor Exam: strength 5/5 throughout Psych mental status grossly normal Skin Skin Narrative: Soft tissue changes of left cheek as documented above MDM MDM MDM Narrative Medical decision making narrative: Patient presented to the ER afebrile and in no acute distress. She had asymmetric soft tissue swelling with faint redness and warmth along the left zygomatic arch towards the bridge of the nose and with this reports underlying dental pain. General diagnosis is for dental abscess versus developing dental infection versus cellulitis. There were no signs of ANUG to the gingiva and there was no brawny edema and therefore my concern for Kana angina is low as well. At this time I feel the soft tissue swelling is secondary to underlying dental infection/developing dental abscess however I do not feel any type of fluctuance internally or externally to suggest incision and drainage. As she is in her third trimester at 39 weeks clindamycin is safe for and appropriate for dental infection. She will be started on this secondary to infection concern. She will be given Percocet in the ER as 1 dose poses little risk to the fetus but advised to only use Tylenol at home. As she does not have signs of systemic infection or airway compromise or edema I do not feel there is need for further workup and she is otherwise safe for discharge History & Record Review Discussion w/independent historian: Patient Discharge Plan Triage Chief Complaint: Edema ED Provider: Lee Hays Dx/Rx/DC Orders Clinical Impression: Dental abscess, Instructions: Dental Abscess Prescriptions: New clindamycin HCl 300 mg capsule 300 mg PO 4X/DAY 10 Days Qty: 40 0RF No Action Classic 28 mg iron- 800 mcg tablet 1 tab PO DAILY aspirin [Adult Low Dose Aspirin] 81 mg tablet,delayed release (DR/EC) 81 mg PO DAILY ondansetron [ondansetron] 4 mg tablet,disintegrating 4 mg PO Q6H PRN PRN (Reason: Nausea) Qty: 20 0RF Primary Care Provider: Cathy Khalil NP Referrals: Cathy Khalil NP, DINKEY ENGINE OPERATOR-C [Primary Care Provider] - Activity Restrictions/Additional Instructions: Here history and exam indicate you are developing a underlying dental abscess/infection. Please take the clindamycin/antibiotic as directed as this should help resolve the infection. Please follow-up with your dentist for repeat evaluation and to discuss need for potential incision and drainage. Return to the ER should you have any further concerns Disposition Disposition: Home, Self Care Discharge Date/Time: 05/26/23 02:43
[2023-05-26] MEDS: Clindamycin HCl 150 MG Capsule 300 MG PO (02:37)
[2023-05-26] MEDS: Oxycodone/Apap 5/325 Tablet PO (02:39)
[2023-05-26 02:42] VITALS: BP 127/85; PULSE 91; RESP 18; TEMP 36.3; O2SAT 98
== END 2023-05-26 02:43 | disposition home or self-care (01) ==
PROVIDERS: Emergency Provider Emergency Medicine; PCP Registered Nurse; Visit Provider Emergency Medicine
DX: O99.613 Diseases of the digestive system complicating pregnancy, third trimester (principal); K04.7 Periapical abscess without sinus; Z3A.39 39 weeks gestation of pregnancy
CPT/HCPCS: 99283

== ENCOUNTER 2023-05-27 03:50 | Inpatient (IN) | payer OTHER, MEDICAID, SELFPAY ==
[2023-05-27] VITALS (44 sets, daily range): BP systolic 110–141; BP diastolic 61–87; PULSE 83–107; RESP 16–18; TEMP 36.3–37.4; O2SAT 93–100; BMI 33.6
[2023-05-27] MEDS: LACTATED RINGERS 500 ML 999 ML IV (04:06)
[2023-05-27] MEDS: Lactated Ringers 1,000 ML 50 ML IV (04:15)
[2023-05-27 04:19] LABS: Absolute Lymphocyte Count 3.23 X10^3/uL (0.83-4.51); Basophil# 0.06 X10^3/uL; Basophil% 0.4 % (0-1); Eosinophil# 0.07 X10^3/uL; Eosinophils% 0.5 % (0-5); Hematocrit 37.2 % (37-47); Hemoglobin 12.5 g/dL (12.0-15.0); Lymphocyte # 3.23 X10^3/ul (0.83-4.51); Lymphocyte % 22.1 % (19-41); Mean Corp Hgb Conc 33.6 g/dL (32-36); Mean Corpuscular Hgb 28.3 pg (27.0-32.0); Mean Corpuscular Volume 84.4 fL (81-99); Mean Platelet Vol. 9.4 fl (6.2-12.0); Monocyte# 1.05 X10^3/uL; Monocyte% 7.2 % (0-10); NRBC Flagged by Analyzer 0 % (0-5); Neutrophil % 68.6 % (47-70); Platelet Count 320 K/mm3 (150-450); RBC Distribution Width CV 13.3 % (11.6-14.6); RBC Distribution Width SD 40.3 fl (35.1-43.9); Red Blood Count 4.41 M/mm3 (4.2-5.4); White Blood Count 14.6 K/mm3 (4.4-11.0)
[2023-05-27] MEDS: Lidocaine 1% (20 ml mdv) 20 ML Vial INFILT (04:35)
[2023-05-27] MEDS: Oxytocin 15 Units/NS 250ml 15 UNITS/250 ML IV.SOLN 83 UNITS IV (04:53)
[2023-05-27] MEDS: Oxytocin 10 UNITS/ML Vial IM (04:54)
[2023-05-27] MEDS: Methylergonovine 0.2 MG/ML Ampul IM (04:57)
--- NOTE | 2023-05-27 05:15 | HP.PCM.OB_ITS ---
HPI - General General Date of Admission: 05/27/23 HPI Narrative SETH DAVE, is a 28 F who presents at 39.2 with worsening contractions since midnight with increasing frequency. denies lof/vb/dec fm. recently being treated for a dental abscess using Augmentin and Tylenol with codeine for pain management. last taken yesterday evening. Maternal Data Information DEBORA Calculator Estimated Delivery Date Method Current WG Current Estimate 06/01/23 LMP (Certain) 39w 2d PFSH PFSH Home Medications vits no.126-ferrous fum 28 mg iron-folic acid 800 mcg tablet (Classic ) 1 tab PO DAILY 10/30/22 [History Last Taken Unknown] aspirin 81 mg tablet,delayed release (Adult Low Dose Aspirin) 81 mg PO DAILY 02/23/23 [History Last Taken Unknown] ondansetron 4 mg disintegrating tablet 4 mg PO Q6H PRN PRN Nausea #20 tabs 02/24/23 [Rx Last Taken Unknown] clindamycin HCl 300 mg capsule 300 mg PO 4X/DAY 10 days #40 caps 05/26/23 [Rx Last Taken Unknown] Allergy/AdvReac Type Severity Reaction Status Date / Time Sulfa (Sulfonamide Allergy Mild Rash Verified 05/26/23 01:28 Antibiotics) Family History Grandmother Breast cancer Aunt Breast cancer Uncle Cancer lung cancer Sister Ulcerative colitis Father Hypertension Grandfather , of heart attack Hypertension Heart disease Grandfather Heart disease Hypertension Aunt Breast cancer Grandmother Breast cancer Sister Ulcerative colitis Pituitary tumor Mother Hypoactive thyroid Surgical History History of mandibular surgery [place] teeth removed Social History adopted: No household members: spouse and children housing: house number of children: 1 current occupational status: employed 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 [employer] current occupational exposures/hazards: No pets and animals: No leisure activities: reading history of recent travel: Yes out of state: Yes out of country: Yes sexually active: Yes Smoking Status: Never smoker second hand exposure: No alcohol intake: never substance use type: does not use well-balanced diet: daily or most days caffeine: Yes eating out: 1-3 times/week what type of physical activity do you participate in: none and walking yang/sikh: Taoist seatbelt use: always do you feel safe at home: Yes additional social history: - Georgi History 2 Elective abortions Hx Para 1 Spontaneous abortions Hx # Term Pregnancies Ectopic pregnancies Hx # Pregnancies 1 Multiple births # of living children 1 Past Pregnancies Del. Date Name GA/Weeks Outcome Route Bth Weight Gen Labor Lgth Anesthesia Del Locatn Provider FOB Unknown [place] 40 live - full term 7#15 [place] Visit Details Expected Delivery Route/Plan Labor Preferences- labor support person: Georgi labor intervention preferences: low intervention, open to massage, breathing carrie hniques, movement pain management options preferred: open to nitrous, epidural, IV medication cut cord/dad catch: she wants to catch : yes PP control planned: [] discussed possible routes of delivery and associated risks: [] special requests: tear naturally. Plans Covid status: [] Flu vaccine: [] Tdap vaccine: Rhogam: NA LARC form signed:declined movement and labor precautions reviewed. Problem list reviewed and updated with the most current plan of care details and appropriate orders placed. Relevant counseling for the gestational age provided. Continue routine care and follow up unless otherwise noted in visit notes/problem list details OB Flowsheet Initial Weight: 197 lb Date -?-?-?-?-?-?-?-?-?-?-?-?- EGA Weight BP Urine Prot -?-?-?-?-?-?-?-?-?-?-?-?- Glucose FHR FuHt Pres Dilation -?-?-?-?-?-?-?-?-?-?-?-?- Effaced St Visit Note 10/30/22 -?-?-?-?-?-?-?-?--?-?-?-?- 9w 3d 197 lb 6 oz (+6 oz) 109/71 -?-?-?-?-?-?-?-?-?-?-?-?- 180 -?-?-?-?-?-?-?-?-?-?-?-?- LC- CRL con with LMP. DEBORA 06/01/2023. accepts nipt. 11/27/22 -?-?-?-?-?-?-?-?-?-?-?-?- 13w 3d 195 lb 6 oz (-1 lb 10 oz) 106/72 Negative -?-?-?-?-?-?-?-?-?-?-?-?- Negative 156 -?-?-?-?-?-?-?-?-?-?-?-?- LC- no vb/crampi ng. did not obtain nob labs with nipt. LC- no vb/cramping. did not obtain nob labs with nipt. its a GIRL!! declines afp. 12/20/22 -?-?-?-?-?-?-?-?-?-?-?-?- 16w 5d 196 lb 8 oz (-8 oz) 98/69 Negative -?-?-?-?-?-?-?-?-?-?-?-?- Negative 145 -?-?-?-?-?-?-?-?-?-?-?-?- LC- no vb/crampi ng. +round ligament pain. to schedule anatomy. 01/14/23 -?-?-?-?-?-?-?-?-?-?-?-?- 20w 2d 202 lb 2 oz (+5 lb 2 oz) 98/68 Negative -?-?-?-?-?-?-?-?-?-?-?-?- Negative 152 20 -?-?-?-?-?-?-?-?-?-?-?-?- MH-No VB. Feelin g movement. Cont RL pain. US next week 02/18/23 -?-?-?-?-?-?-?-?-?-?-?-?- 25w 2d 210 lb 6 oz (+13 lb 6 oz) 121/81 Negative -?-?-?-?-?-?-?-?-?-?-?-?- Negative 143 25 -?-?-?-?-?-?-?-?-?-?-?-?- LC- no vb/ctx/lo f. +fm.had covid. started on baby asa. LC- no vb/ctx/lof. +fm.had c ovid. started on baby asa.increased brain fog and mild depression since weaning off over the past few weeks, declines intervention today. 03/19/23 -?-?-?-?-?-?-?-?-?-?-?-?- 29w 3d 212 lb (+15 lb) 110/76 Negative -?-?-?-?-?-?-?-?-?-?-?-?- Negative 145 32 -?-?-?-?-?-?-?-?-?-?-?-?- JV- back to [address] feeding and having contractions. recommended to stop. pt wants to travel to [place] discussed risks. 04/10/23 -?-?-?-?-?-?-?-?-?-?-?-?- 32w 4d 217 lb (+20 lb) 123/79 -?-?-?-?-?-?-?-?-?-?-?-?- 140 34 1 -?-?-?-?-?-?-?-?-?-?-?-?- 20 -4 SM- co irr egular ctx no vb lof good fm 04/22/23 -?-?-?-?-?-?-?--?-?-?-?-?- 34w 2d 220 lb (+23 lb) 115/82 -?-?-?-?-?-?-?-?-?-?-?-?- 125 35 -?-?-?-?-?-?-?-?-?-?-?-?- SM- no vb lof go od fm n oreuglar ctx, decreased now 05/07/23 -?-?-?-?-?-?-?-?-?-?-?-?- 36w 3d 226 lb (+29 lb) 120/85 Negative -?-?-?-?-?-?-?-?-?-?-?-?- Negative 140 36 Cephalic 1 .5 -?-?-?-?-?-?-?-?-?-?-?-?- 40 -4 LC- no lof /ctx/vb. good fm.gbs collect. 05/14/23 -?-?-?-?-?-?-?-?-?-?-?-?- 37w 3d 229 lb 8 oz (+32 lb 8 oz) 126/84 Negative -?-?-?-?-?-?-?-?-?-?-?-?- Negative 140 37 Cephalic 1 .5 -?-?-?-?-?-?-?-?-?-?-?-?- 40 -3 LC- no lof /vb/ctx. good fm. gbs neg. 05/22/23 -?-?-?-?-?-?-?-?-?-?-?-?- 38w 4d 228 lb (+31 lb) 132/87 Negative -?-?-?-?-?-?-?-?-?-?--?-?- Negative 140 38 Cephalic 3 -?-?-?-?-?-?-?-?-?-?-?-?- 50 -2 SM- no vb lof good fm no regular ctx NST FHR Rate Baby A Baseline: 125 Variability:: Moderate Accelerations:: 15 x 15 Decelerations:: Early NST Reactive:: Yes FHR Category:: Category I Uterine Activity:: q2 ROS Cardiovascular Cardiovascular: Denies abdominal pain, chest pain, diaphoresis or dyspnea Respiratory/Chest Respiratory/Chest: Denies change in mental status, chest congestion, chest tightness, cough, shortness of breath at rest, shortness of breath with exertion, breast mass, breast pain, breast skin changes, breast swelling, change in breast shape or nipple discharge Genitourinary Genitourinary: Reports change in urinary stream Musculoskeletal Musculoskeletal: Reports none Integumentary Integumentary: Reports none Neurologic Neurologic: Reports none Psychiatric Psychiatric: Reports none Endocrine Endocrinology: Reports none Hematologic/Lymphatic Hematologic/Lymphatic: Reports none Allergic/Immunologic Allergic/Immunologic: Reports none Vital Signs Vital Signs Vital Signs: 05/27/23 04:17 05/27/23 04:17 05/27/23 04:42 Pulse Rate Respiratory Rate 18 Blood Pressure 141/87 H BP Systolic 141 BP Diastolic 87 Pulse Ox 99 05/27/23 04:42 05/27/23 05:13 05/27/23 05:13 Pulse Rate 100 96 Respiratory Rate Blood Pressure 136/75 H BP Systolic 136 BP Diastolic 75 Pulse Ox Weight Weight: 228 lb Body Mass Index (BMI) 33.6 Physical Exam Const alert, oriented x3 and no apparent distress General Appearance: cooperative, comfortable and well kempt Orientation / Consciousness: awake and oriented to person Exam Limitations: no limitations HEENT normocephalic Neck full ROM Chest inspection of chest normal Resp normal respiratory effort, normal air movement and no retractions Effort and Inspection: able to speak in complete sentences and symmetric chest movement Cardio regular rate Peripheral Pulses: pulses 2+ throughout GI normal to inspection, nondistended, normoactive bowel sounds Inspection: gravid no CVA tenderness and appearance of the vagina normal External Female Exam: normal appearance of the urethra; Negative for external lesion OB / External & Speculum: external exam normal Manual OB Exam: estimated gestational size appropriate, presentation cephalic, dilated 10, effaced 100 and station 0 Uterus Palpation: Negative for uterus tender Extremity normal to inspection Skin no rashes or lesions noted Neuro deep tendon reflexes 2+ bilaterally and gait normal Motor Exam: strength 5/5 throughout and clonus absent Psych Activity / Motor Behavior: appropriate eye contact Speech: normal speech Labs Labs Labs: Blood Type A POSITIVE Antibody Screen NEGATIVE Hct 37.2 % (37-47) Hgb 12.5 g/dL (12.0-15.0) Obstetrics Ultrasound Syphilis Total Ab Non-reactive VZV IgG Antibody 640 index (Immune >165) Rubella IgG Antibody Reactive (Nonreactive) Hep Bs Antigen Non-Reactive (Nonreactive) Hepatitis C Antibody Non-Reactive (Nonreactive) Chlamydia DNA (GLO) Negative (Negative) N.gonorrhoeae DNA (GLO) Negative (Negative) HIV 1&2 Antibody Non-Reactive (Nonreactive) Glucose 1 Hr 50 gm 117 mg/dL (70-140) Group B Strep DNA Negative (Negative) Assessment & Plan (1) Active labor at term: COMMENT: 39.2 active labor at term. PLAN: Plan Patient presents IAL, plan expectant management for Pain management: plans unmedicated GBS neg. Management of any complications: none I have reviewed the [facility] and made any clinically relevant updates. updated on admission, exam and poc.
--- NOTE | 2023-05-27 05:26 | EX.PCM.OBRPT ---
Assessment & Plan (1) (spontaneous vaginal delivery): COMMENT: LC 39.2 girl: Mike Maternal Data Information DEBORA Calculator Estimated Delivery Date Method Current WG Current Estimate 06/01/23 LMP (Certain) 39w 2d Final DEBORA: 06/01/23 Final DEBORA Source: LMP Gestational age: 39.2 Vaginal Delivery Maternal Presentation Maternal Presentation: Active Labor Maternal Presentation: at 39.2 in transition labor upon admission, fully dilated Operative Information Date of Procedure: 05/27/23 Pre-Operative Diagnosis: see problem list Post-Operative Diagnosis: Surgery / Procedure Performed: Spontaneous Vaginal Delivery Type of Anesthesia: None Estimated Blood Loss: 600 Time of Delivery: 04:29 Findings Description of Procedure: Patient began pushing and delivered the head in the AREN presentation. The head was delivered atraumatically and a loose nuchal cord ?1 was identified and easily reduced over the 's head. The anterior and posterior shoulders delivered without complication followed by the rest of the and the infant was placed on the maternal abdomen. Delayed cord clamping was employed for approximately 60 seconds. Cord was clamped and cut and gentle traction was applied to the cord and the placenta delivered spontaneously immediately following it was noted to be intact with three-vessel cord. The perineum and vagina were inspected and noted to have a second degree laceration with right sided labial tear repaired with 3-0 and 2-0 vicryl. EBL was 600cc hemostasis achieved with IM pitocin and methergine. Patient and infant tolerated delivery well. Dr. Das updated on delivery,agrees with routine pp orders. Presentation: Vertex Amniotic Membrane Rupture Type: Spontaneous Time of Membrane Rupture: 0415 Amniotic Fluid Description: Clear Placental Delivery Description: Spontaneous Placenta Disposition: [facility] Cord Vessel Description: 3 Vessels Cord Entanglement: Around neck x 1, loose A Gender: Female (1 minute): 9 (5 minute): 9 Delayed Cord Clamping: Yes Post Vaginal Delivery Medications Given After Delivery: IM Pitocin and IM Methergin Laceration: Vaginal Extension/lac and 2nd degree Procedures Urinary/Genital [id number]: 12570 Vaginal Delivery [facility]
[2023-05-27] MEDS: Benzocaine/Lanolin/Aloe Vera 1 SPRAY EACH TOPICAL (06:30)
[2023-05-27] MEDS: Naproxen 500 MG Tablet PO ×2 (06:31→16:25)
--- NOTE | 2023-05-27 06:36 | PN.OBGYN_ITS ---
Subjective Subjective vaginal pressure/discomfort Objective Data Objective Data Vital Signs: Vital Signs Temp Pulse Resp BP Pulse Ox 99.4 F H 96 16 128/74 H 97 05/27/23 06:25 05/27/23 06:34 05/27/23 06:25 05/27/23 06:25 05/27/23 06:34 Weight: 228 lb Body Mass Index (BMI) 33.6 Intake & Output: Intake and Output for Last 24 Hours 05/25/23 05/26/23 05/27/23 23:59 23:59 23:59 Intake Total 184.85 / 184.85 Output Total 600 / 600 Balance -415.15 / -415.15 Lab / Micro Data 05/27/23 04:06 Labs: Laboratory Results - last 24 hr 05/27/23 04:06: WBC 14.6 H, RBC 4.41, Hgb 12.5, Hct 37.2, MCV 84.4, MCH 28.3, MCHC 33.6, RDW Std Deviation 40.3, RDW Coeff of Sarah 13.3, Plt Count 320, MPV 9.4 , Immature Gran % (Auto) 1.200 H, Neut % (Auto) 68.6, Lymph % (Auto) 22.1, Mills % (Auto) 7.2, Eos % (Auto) 0.5, Baso % (Auto) 0.4, Absolute Neuts (auto) 10.0 H, Absolute Lymphs (auto) 3.23, Nucleated RBC % 0 Physical Exam Const alert and no apparent distress Resp normal respiratory effort, normal air movement and no retractions Cardio regular rate and regular rhythm GI normal to inspection, nondistended, normoactive bowel sounds Groin / Perineum Exam: ecchymosis, edema and other hematoma to right labia- quarter size ecchymosis area. compression with ice Assessment & Plan (1) Hematoma of labia majora: COMMENT: compress with ice. VSS. CBC ordered for AM- obtain sooner if VS change (2) (spontaneous vaginal delivery): COMMENT: LC 39.2 girl: [place] (3) Dental abscess: COMMENT: continue augmentin BID
--- NOTE | 2023-05-27 06:46 | DCINST_ITS ---
Discharge Instructions Follow Up Care Test Results: Test results from this visit will be discussed in further detail at your follow- up appointment, if applicable. Discharge Plan Admission Admit Date/Time: 05/27/23 03:50 Attending Provider: Afua Mooney Primary Care Provider: Cathy Khalil NP Discharge Orders/Prescriptions Prescriptions: No Action Classic 28 mg iron- 800 mcg tablet 1 tab PO DAILY aspirin [Adult Low Dose Aspirin] 81 mg tablet,delayed release (DR/EC) 81 mg PO DAILY ondansetron [ondansetron] 4 mg tablet,disintegrating 4 mg PO Q6H PRN PRN (Reason: Nausea) Qty: 20 0RF amoxicillin-pot clavulanate [Augmentin] 500-125 mg tablet 1 tab PO BID Referrals / Follow Up: Cathy Khalil NP, FINANCIAL BUSINESS ANALYST-C [Primary Care Provider] - Disposition Disposition (needs filled in before D/C Order can be placed): Home, Self Care
--- NOTE | 2023-05-27 06:48 | DCINST_ITS ---
Discharge Instructions Diet Discharge Diet: No restrictions Activity Discharge Activity: May Not Drive and May Shower May resume sexual activity in: 6 weeks Weight Bearing Status: Full weight bearing Dressing / Incision Call your doctor if your incision/area has: Sudden Increased Bleeding, Increased Pain/ Swelling and Foul Smelling Discharge Call your doctor if you observe: Fever of 101 or Higher, Numbness or Tingling, Change in Color, Inability to urinate, Inability to have a bowel movement, Using more than 1 pad per hour, Shortness of breath, Dizziness, Fainting spells, Chest pain, Calf discomfort and Uncontrolled pain Follow Up Care Please Follow Up With: Afua Mooney CNM When: 6 weeks , please call office to make an appointment. Congratulations on the of your baby! Test Results: Test results from this visit will be discussed in further detail at your follow- up appointment, if applicable. Discharge Plan Admission Admit Date/Time: 05/27/23 03:50 Attending Provider: Afua Mooney Primary Care Provider: Cathy Khalil NP Discharge Orders/Prescriptions Prescriptions: No Action Classic 28 mg iron- 800 mcg tablet 1 tab PO DAILY aspirin [Adult Low Dose Aspirin] 81 mg tablet,delayed release (DR/EC) 81 mg PO DAILY ondansetron [ondansetron] 4 mg tablet,disintegrating 4 mg PO Q6H PRN PRN (Reason: Nausea) Qty: 20 0RF amoxicillin-pot clavulanate [Augmentin] 500-125 mg tablet 1 tab PO BID Referrals / Follow Up: Cathy Khalil NP, GROUP CAPTAIN-C [Primary Care Provider] - Disposition Disposition (needs filled in before D/C Order can be placed): Home, Self Care
[2023-05-27 08:24] LABS: Absolute Lymphocyte Count 1.31 X10^3/uL (0.83-4.51); Absolute Neutrophil Count 14.5 X10^3/uL (2.0-7.7); Basophil# 0.07 X10^3/uL; Basophil% 0.4 % (0-1); Eosinophil# 0.12 X10^3/uL; Eosinophils% 0.7 % (0-5); Hematocrit 35.6 % (37-47); Lymphocyte # 1.31 X10^3/ul (0.83-4.51); Lymphocyte % 7.7 % (19-41); Mean Corp Hgb Conc 33.7 g/dL (32-36); Mean Corpuscular Hgb 28.4 pg (27.0-32.0); Mean Corpuscular Volume 84.2 fL (81-99); Mean Platelet Vol. 9.5 fl (6.2-12.0); Monocyte# 0.85 X10^3/uL; NRBC Flagged by Analyzer 0 % (0-5); Neutrophil # 14.45 X10^3/uL (2.7-7.7); Neutrophil % 85.1 % (47-70); Platelet Count 287 K/mm3 (150-450); RBC Distribution Width CV 13.2 % (11.6-14.6); RBC Distribution Width SD 39.9 fl (35.1-43.9); Red Blood Count 4.23 M/mm3 (4.2-5.4)
[2023-05-27 09:30] LABS: Syphilis Antibodies Non-reactive
[2023-05-27] MEDS: Amox/Clavulanate 875 MG Tablet PO ×2 (09:56→22:20)
[2023-05-27] MEDS: oxyCODONE 5 MG Tablet PO ×3 (09:56→22:20)
[2023-05-27] MEDS: 0.9% Saline Lock 10 ML Syringe IV (14:35)
[2023-05-27 14:54] LABS: Hematocrit 34.4 % (37-47); Hemoglobin 11.6 g/dL (12.0-15.0); Mean Corp Hgb Conc 33.7 g/dL (32-36); Mean Corpuscular Hgb 28.6 pg (27.0-32.0); Mean Corpuscular Volume 84.7 fL (81-99); Mean Platelet Vol. 9.5 fl (6.2-12.0); Platelet Count 285 K/mm3 (150-450); RBC Distribution Width CV 13.3 % (11.6-14.6); RBC Distribution Width SD 40.7 fl (35.1-43.9); Red Blood Count 4.06 M/mm3 (4.2-5.4); White Blood Count 12.4 K/mm3 (4.4-11.0)
[2023-05-28 00:27] VITALS: BP 128/84; PULSE 93; RESP 16; TEMP 36.2; O2SAT 96
[2023-05-28 03:47] VITALS: BP 107/67; PULSE 94; RESP 16; TEMP 36.3; O2SAT 98
[2023-05-28 04:55] LABS: Hematocrit 28.1 % (37-47); Hemoglobin 9.1 g/dL (12.0-15.0); Mean Corp Hgb Conc 32.4 g/dL (32-36); Mean Corpuscular Hgb 27.9 pg (27.0-32.0); Mean Corpuscular Volume 86.2 fL (81-99); Mean Platelet Vol. 9.5 fl (6.2-12.0); Platelet Count 211 K/mm3 (150-450); RBC Distribution Width CV 13.2 % (11.6-14.6); RBC Distribution Width SD 41.2 fl (35.1-43.9); Red Blood Count 3.26 M/mm3 (4.2-5.4); White Blood Count 8.3 K/mm3 (4.4-11.0)
[2023-05-28] MEDS: 0.9% Saline Lock 10 ML Syringe IV (04:56)
[2023-05-28] MEDS: oxyCODONE 5 MG Tablet PO ×4 (04:56→19:44)
[2023-05-28 08:30] VITALS: BP 104/63; PULSE 81; RESP 16; TEMP 36.8; O2SAT 98
--- NOTE | 2023-05-28 08:59 | PCM.PN.OB ---
Subjective Subjective no complaints today. Has minimal pain in right labia (hematoma after delivery) Objective Data Objective Data Vital Signs: Vital Signs Temp Pulse Resp BP Pulse Ox O2 Del Method 97.4 F L 94 16 107/67 98 Room Air 05/28/23 03:47 05/28/23 03:47 05/28/23 03:47 05/28/23 03:47 05/28/23 03:47 05/28/23 03:47 Oxygen Delivery Method Room Air Weight: 228 lb Body Mass Index (BMI) 33.6 Intake & Output: Intake and Output for Last 24 Hours 05/26/23 05/27/23 05/28/23 23:59 23:59 23:59 Intake Total 434.85 / 434.85 Output Total 2400 / 2400 Balance -1964.15 / -1964.15 Lab / Micro Data 05/28/23 04:45 Labs: Laboratory Results - last 24 hr 05/27/23 04:06: Syphilis Total Ab Non-reactive, Blood Type A POSITIVE, Antibody Screen NEGATIVE 05/27/23 14:30: WBC 12.4 H, RBC 4.06 L, Hgb 11.6 L, Hct 34.4 L, MCV 84.7, MCH 28.6, MCHC 33.7, RDW Std Deviation 40.7, RDW Coeff of Sarah 13.3, Plt Count 285, MPV 9.5 05/28/23 04:45: WBC 8.3, RBC 3.26 L, Hgb 9.1 L, Hct 28.1 L, MCV 86.2, MCH 27.9, MCHC 32.4, RDW Std Deviation 41.2, RDW Coeff of Sarah 13.2, Plt Count 211, MPV 9.5 ROS Constitutional Constitutional: Denies chills, fatigue, fever(s), poor appetite or weakness Eyes Eyes: Denies blurry vision, change in vision, seeing flashes or spots in vision ENT HEENT: Denies dizziness, headache(s), loss taste/smell or sore throat Cardiovascular Cardiovascular: Denies chest pain, dizziness, dyspnea, irregular heart rhythm, palpitations or rapid heart rate Respiratory/Chest Respiratory/Chest: Denies chest tightness, cough, dyspnea or breast pain Gastrointestinal Gastrointestinal: Denies abdominal pain, constipation or vomiting Genitourinary Genitourinary: Denies dysuria or flank pain Musculoskeletal Musculoskeletal: Denies difficulty walking, joint pain, limited range of motion or numbness Neurologic Neurologic: Denies abnormal movements, abnormal speech, dizziness, numbness, seizure-like activity or syncope Psychiatric Psychiatric: Denies anxiety, behavioral changes, change in appetite, confusion, depression or suicidal thoughts Physical Exam Const alert, oriented x3 and no apparent distress General Appearance: cooperative and comfortable Resp normal respiratory effort Cardio regular rate GI normal to inspection, nondistended, normoactive bowel sounds GI Narrative: uterus is firm below umbilicus Palpation: soft Narrative: mild labial hematoma that appears confined to the borders of the right labia. minimal swelling. Back/Spine no CVA tenderness and thoraco-lumbar ROM normal Extremity normal to inspection, no clubbing, cyanosis or edema, no calf tenderness and no pedal edema Psych mental status grossly normal, thought process normal, cooperative, affect normal, speech normal, activity/motor behavior normal, denies homicidal ideation and denies suicidal ideation Assessment & Plan (1) Hematoma of labia majora: COMMENT: compress with ice. VSS. CBC ordered for AM- obtain sooner if VS change (2) (spontaneous vaginal delivery): COMMENT: LC 39.2 girl: Mike PLAN: Plan s/p PPD # 1 1. routine post delivery care 2. breast feeding- support given 3. rh positive 4. rubella immune 5. keep ice on hematoma. this is stable and she should be able to go home tomorrow if unchanged.
[2023-05-28] MEDS: Senna/Docusate Sodium 1 Tablet PO (09:59)
[2023-05-28] MEDS: Amox/Clavulanate 875 MG Tablet PO ×2 (10:00→21:58)
[2023-05-28] MEDS: Acetaminophen 500 MG Tablet 1000 MG PO ×2 (12:09→19:42)
[2023-05-28] MEDS: Naproxen 500 MG Tablet PO (12:09)
[2023-05-28 14:45] VITALS: BP 124/80; PULSE 92; RESP 16; TEMP 36.3; O2SAT 97
[2023-05-28 19:49] VITALS: BP 121/79; PULSE 86; RESP 16; TEMP 36.3; O2SAT 97
[2023-05-29] MEDS: Naproxen 500 MG Tablet PO ×2 (00:48→10:59)
[2023-05-29] MEDS: oxyCODONE 5 MG Tablet PO (00:49)
[2023-05-29 01:27] VITALS: BP 115/67; PULSE 100; RESP 16; TEMP 36.6; O2SAT 96
--- NOTE | 2023-05-29 07:56 | PCM.PN.OB ---
Subjective Subjective Patient doing well without complaints. Tolerating PO. Ambulating and voiding without difficulty. feeding well. Denies chest pain, shortness of breath, calf pain/swelling, fevers, chills, lightheadedness. hematoma stable Objective Data Objective Data Vital Signs: Vital Signs Temp Pulse Resp BP Pulse Ox O2 Del Method 97.8 F 100 16 115/67 96 Room Air 05/29/23 01:27 05/29/23 01:27 05/29/23 01:27 05/29/23 01:27 05/29/23 01:27 05/29/23 01:27 Oxygen Delivery Method Room Air Weight: 228 lb Body Mass Index (BMI) 33.6 Intake & Output: Intake and Output for Last 24 Hours 05/27/23 05/28/23 05/29/23 23:59 23:59 23:59 Intake Total 434.85 / 434.85 Output Total 2400 / 2400 Balance -1965.15 / -1965.15 Lab / Micro Data 05/28/23 04:45 ROS Constitutional Constitutional: Reports systems reviewed and no addt'l complaints, except as documented Cardiovascular Cardiovascular: Reports systems reviewed and no addt'l complaints, except as documented Respiratory/Chest Respiratory/Chest: Reports systems reviewed and no addt'l complaints, except as documented Gastrointestinal Gastrointestinal: Reports systems reviewed and no addt'l complaints, except as documented Physical Exam Const alert, oriented x3 and no apparent distress HEENT Head and Scalp: atraumatic Resp normal respiratory effort GI soft to palpation and non-tender Bimanual Exam - Vag & Uterus: uterus non-tender Uterus Palpation: uterus fundus firm (below Umbilicus) Assessment & Plan (1) Hematoma of labia majora: COMMENT: compress with ice. VSS. CBC ordered for AM- obtain sooner if VS change (2) (spontaneous vaginal delivery): COMMENT: LC 39.2 girl: [place] PLAN: Plan hematoma examined and appears stable, precations reviewed routine pp care with lifting restrictions
[2023-05-29] MEDS: Acetaminophen 500 MG Tablet 1000 MG PO (09:10)
[2023-05-29 09:17] VITALS: BP 120/75; PULSE 102; RESP 18; TEMP 36.2; O2SAT 97
[2023-05-29] MEDS: Amox/Clavulanate 875 MG Tablet PO (10:59)
--- NOTE | 2023-06-02 15:30 | NURSING ---
Follow up phone call made, doing well. Patient states she is starting to feel better each day. States that nursing is going well and that the infant is nursing every 2-3 hours without difficulty. States she had a follow up visit with Amanda on Friday and things are all good. Patient denies having any questions or concerns at this time.
== END 2023-05-29 11:10 | disposition home or self-care (01) | DRG 807 ==
PROVIDERS: Advanced Practice Midwife; Admitting Provider Registered Nurse; PCP Registered Nurse; Visit Provider Registered Nurse
DX: O76 Abnormality in fetal heart rate and rhythm complicating labor and delivery (principal); Z37.0 Single live birth; K04.7 Periapical abscess without sinus; O99.62 Diseases of the digestive system complicating childbirth; O69.81X0 Labor and delivery complicated by cord around neck, without compression, not applicable or unspecified; O70.1 Second degree perineal laceration during delivery; O90.2 Hematoma of obstetric wound; Z3A.39 39 weeks gestation of pregnancy; Z79.82 Long term (current) use of aspirin
CPT/HCPCS: 59025; 59050; 85025; 85027; 86780; 86850; 86900; 86901; 99221; J7120; A4216; G0378

== ENCOUNTER → 2024-01-23 | Outpatient (CLI) | payer MEDICAID, SELFPAY ==
[2024-01-23 14:29] LABS: Free T3 2.6 pg/mL (2.18-3.98); T4 Free Direct 0.83 ng/dL (0.76-1.46)
[2024-01-25 08:07] LABS: Thyroid Peroxidase AB 242 IU/mL (0-34)
== END | disposition home or self-care (01) ==
PROVIDERS: PCP Registered Nurse; Referring Provider Internal Medicine Endocrinology, Diabetes & Metabolism; Visit Provider Internal Medicine Endocrinology, Diabetes & Metabolism
DX: E05.90 Thyrotoxicosis, unspecified without thyrotoxic crisis or storm (principal)
CPT/HCPCS: 36415; 84439; 84443; 84481; 86376

== ENCOUNTER → 2024-03-02 | Outpatient (CLI) | payer MEDICAID, SELFPAY ==
[2024-03-02 13:58] LABS: T4 Free Direct 0.91 ng/dL (0.76-1.46)
== END | disposition home or self-care (01) ==
PROVIDERS: PCP Registered Nurse; Referring Provider Internal Medicine Endocrinology, Diabetes & Metabolism; Visit Provider Internal Medicine Endocrinology, Diabetes & Metabolism
DX: E06.3 Autoimmune thyroiditis (principal)
CPT/HCPCS: 36415; 84439; 84443

== ENCOUNTER → 2024-03-19 | Outpatient (CLI) | payer MEDICAID, SELFPAY ==
--- NOTE | 2024-03-19 13:05 | US_ITS ---
INDICATION: IUD placement EXAMINATION: Ultrasound US Transvaginal Non-OB TECHNIQUE: Transvaginal (for optimal evaluation of the adnexa) pelvic ultrasound was performed. Grayscale, spectral waveform, and color flow Doppler evaluation of the adnexa. COMPARISON: FINDINGS: UTERUS: Anteverted. The uterus measures 7.9 x 5.3 x 3.6 cm. There is no uterine mass. The endometrial stripe measures 3 mm in AP diameter with an IUD noted in place. RIGHT OVARY: 3.1 x 1.8 x 2.4 cm. Non-enlarged, normal echogenicity. There is normal arterial inflow and venous outflow present in the right ovary. LEFT OVARY: 2.1 x 1.6 x 1.7 cm. Non-enlarged, normal echogenicity. There is normal arterial inflow and venous outflow present in the left ovary. FREE FLUID: Mild. US/Transvaginal Non- IMPRESSION: IUD in the fundal region. Mild pelvic free fluid. Electronically Signed: Ricardo Sales DO at 16:25 EST ,
== END | disposition home or self-care (01) ==
LOC: US 13:04
PROVIDERS: PCP Registered Nurse; Referring Provider Advanced Practice Midwife; Visit Provider Advanced Practice Midwife
DX: Z30.431 Encounter for routine checking of intrauterine contraceptive device (principal)
CPT/HCPCS: 76830

== ENCOUNTER → 2024-10-04 | Outpatient (CLI) | payer SELFPAY ==
[2024-10-04 16:32] LABS: hCG Titer Quant., Serum < 1 mIU/mL (<9 non-preg)
== END | disposition home or self-care (01) ==
PROVIDERS: PCP Registered Nurse; Referring Provider Nurse Practitioner Women's Health; Visit Provider Nurse Practitioner Women's Health
DX: N91.2 Amenorrhea, unspecified (principal)
CPT/HCPCS: 36415; 84702